=== PATIENT | female | born 1965 | race Caucasian/White ===

== ENCOUNTER 2018-09-07 13:33 | Outpatient (CLI) | payer MEDICARE, MEDICAID ==
--- NOTE | 2018-09-07 17:59 | MRI ---
MRI LUMBAR SPINE WITH AND WITHOUT CONTRAST: 09/07/2018 HISTORY: A 53-year-old female with low back pain and right-sided sciatica. COMPARISON: No prior MRIs of the lumbar spine. TECHNIQUE: Multiple sequences obtained in axial and sagittal planes, pre and post IV injection of gadolinium-bas ed contrast agent: 16 mL MultiHance. FINDINGS: There are five lumbar type vertebrae. Vertebral body heights and disk spaces are maintained. Alignm ent is normal. The conus medullaris terminates at L1-L2. There is no abnormal enhancement or mass, in the intradural, extradural, intraosseous, or perivertebral spaces. There is asymmetry of the caud a equina in the lower portion of the thecal sac, beginning at the lower L4 level, through the upper S 1 level. This is probably due to conjoined nerve root at L5-S1, and is less likely to represent deli worker quyen arachnoiditis. There is no central spinal canal stenosis or neural foraminal stenosis at any lev el. There is no nerve root impingement by disk herniation at any level. There is no epidural absces s. IMPRESSION: Essentially normal. JN R POS: OFF
== END 2018-09-07 13:34 | disposition home or self-care (01) ==
LOC: MRI 13:33
PROVIDERS: ATTEND Internal Medicine Infectious Disease
DX: M54.31 Sciatica, right side (principal)
CPT/HCPCS: 72158

== ENCOUNTER 2018-09-26 14:00 | Outpatient (CLI) | payer MEDICARE, MEDICAID ==
--- NOTE | 2018-09-26 14:30 | RAD ---
XR Hip Rt 2-3 View: 09/26/2018 12:00 AM CLINICAL INDICATION: Right hip pain COMPARISON: 07/25/2018 FINDINGS: Fracture:No fracture. Arthropathy:Moderate osteoarthritis is present. Metallic hardware of the acetabulum and right femoral head is present, without acute complication identified Incidental findings:None of significance. IMPRESSION: Postoperative right hip with moderate osteoarthritis.
== END 2018-09-26 14:01 | disposition home or self-care (01) ==
LOC: BICRAD 14:00
PROVIDERS: ATTEND Internal Medicine Infectious Disease
DX: M25.551 Pain in right hip (principal); M16.11 Unilateral primary osteoarthritis, right hip; Z98.890 Other specified postprocedural states

== ENCOUNTER 2019-10-01 16:20 | Inpatient (IN) | payer MEDICARE, MEDICAID, OTHER ==
[2019-10-01] MEDS ORDERED: Fentanyl 100 MCG/2 ML VIAL ONE ×2 (17:12→17:21)
--- NOTE | 2019-10-01 17:39 | RAD ---
XR Chest 1 View Portable HISTORY: Preop exam FINDINGS: The heart size is at upper limits of normal. The lungs are well expanded without focal area s of consolidation, pneumothorax or pleural effusions. IMPRESSION: No radiographic evidence of acute cardiopulmonary process.
--- NOTE | 2019-10-01 17:42 | RAD ---
XR Knee Rt 2 View HISTORY: Fall, right knee pain FINDINGS: No fracture or dislocation is identified.
--- NOTE | 2019-10-01 17:44 | RAD ---
XR Femur Rt 2 View STANDARD HISTORY: Fall, right lower extremity pain FINDINGS: There are postop changes of right hip arthroplasty. There is a fracture involving the proximal femur. There is bony involvement and mild displacement adjacent to the inferior aspect of the femoral stem of the metallic hardware.
--- NOTE | 2019-10-01 17:45 | RAD ---
XR Pelvis AP STANDARD HISTORY: Trauma, right lower extremity pain FINDINGS: A right total hip arthroplasty is present with a fracture of the right proximal femur
[2019-10-01 18:35] LABS: #Eosinphils 0.1 thou/uL (0.0-0.7); #Lymphocytes 1.1 thou/uL (1.20-3.40); #Monocytes 0.7 thou/uL (0.11-0.59); #Neutrophils 7.1 thou/uL (1.40-6.50); %Basophils 0.3 % (0.0-1.0); %Eosinophils 1.4 % (0.0-10.0); %Lymphocytes 11.7 % (21.0-51.0); %Monocytes 7.3 % (0.0-10.0); %Neutrophils 79.3 % (42.0-75.0); Hemoglobin 8.3 g/dL (12.0-16.0); Mean Corpuscular HGB CONC 34.8 g/dL (32.0-36.0); Mean Corpuscular Hemoglobin 33.2 pg (27.0-31.0); Mean Corpuscular Volume 95.4 fL (78.0-98.0); Mean Platelet Volume 7.5 fL (7.4-10.4); Platelet Count 210 thou/uL (130-400); RBC Distribution Width 11.3 % (11.5-14.5); Red Blood Cell (RBC) Count 2.49 mill/uL (4.20-5.40)
[2019-10-01 18:47] LABS: Bilirubin Negative (Negative); Blood, Urine Negative (Negative); Clarity Clear (Clear); Glucose, Urine (Dipstick) Normal (Negative); Ketone, Urine Negative (Negative); Leukocyte Negative Leu/uL (Negative); Nitrite Negative (Negative); Protein, Urine (Dipstick) Negative (Neg-Trace); Urobilinogen Normal mg/dL (Less than 2)
[2019-10-01 18:57] LABS: ALT (SGPT) 17 U/L (8-55); AST (SGOT) 25 U/L (5-34); Albumin 3.6 g/dL (3.5-5.0); Alkaline Phosphatase 118 U/L (40-110); Anion Gap 15 mmol/L (10-20); BUN (Urea Nitrogen) 26 mg/dL (9.8-20.1); Bilirubin, Total 0.5 mg/dL (0.2-1.2); Calc. Creatinine Clearance 0 mL/min (70-130); Calcium 9.9 mg/dL (7.8-10.44); Carbon Dioxide 16 mmol/L (22-29); Chloride 107 mmol/L (98-107); Estimated GFR-MDRD 43; Glucose 178 mg/dL (70-105); Potassium 3.4 mmol/L (3.5-5.1); Protein, Total 6.6 g/dL (6.0-8.3); Sodium 135 mmol/L (136-145)
[2019-10-01 19:01] LABS: SARS-CoV-2 NAA Rapid Test Not Detected (NotDetected)
[2019-10-01] MEDS ORDERED: Ondansetron PF 4 MG/2 ML Vial IVP PRN (21:11)
[2019-10-01] MEDS ORDERED: Ketorolac Tromethamine 30 MG/ML VIAL IVP PRN (21:11)
[2019-10-01] MEDS ORDERED: Fentanyl 100 MCG/2 ML VIAL SLOW IVP PRN (21:11)
[2019-10-01] MEDS ORDERED: traMADol HCl 50 MG TAB PO PRN ×2 (21:11)
[2019-10-01] MEDS ORDERED: Fleet Enema 133 ML BOT PR PRN (21:11)
[2019-10-01] MEDS ORDERED: Milk Of Magnesia 30 ML UDCUP PO PRN (21:11)
[2019-10-01] MEDS ORDERED: Insulin Regular 300 UNITS/3 ML VIAL SC PRN ×2 (21:11→22:09)
[2019-10-01] MEDS ORDERED: Dextrose 50% Abboject 50 ML SYRINGE SLOW IVP PRN (21:11)
[2019-10-01] MEDS ORDERED: Ondansetron ODT 4 MG TAB PO PRN (21:11)
[2019-10-01] MEDS ORDERED: Bisacodyl 10 MG SUPP PR PRN (21:11)
[2019-10-01] MEDS: Sodium Chloride 0.9% 1,000 ML IV SCH (21:41)
[2019-10-01] MEDS: Docusate 100 MG CAP PO SCH (21:48)
[2019-10-01] MEDS ORDERED: traZODone HCl 50 MG TAB PO SCH (22:00)
[2019-10-01] MEDS ORDERED: Lithium Carbonate ER 450 mg Tablet PO SCH (22:00)
[2019-10-01] MEDS ORDERED: Benztropine 1 MG TAB PO SCH (22:00)
[2019-10-01] MEDS ORDERED: Fenofibrate Nanocrystallized 145 MG TAB PO SCH (22:00)
[2019-10-01] MEDS ORDERED: hydrOXYzine 25 MG TAB PO SCH (22:15)
[2019-10-01] MEDS ORDERED: Gabapentin 300 MG CAP PO SCH (22:15)
[2019-10-01] MEDS ORDERED: Emtricitabine/Tenofovir 200-300 MG TAB PO SCH (22:30)
[2019-10-01] MEDS: HYDROcodone/Acetaminophen 10/325 mg Tablet PO PRN (22:58)
[2019-10-01 23:55] VITALS: BMI 34.3
--- NOTE | 2019-10-02 05:16 | HP ---
HISTORY OF PRESENT ILLNESS: Ms. Champagne is a 54-year-old female who presented status post right total hip arthroplasty for a right hip fracture dislocation, treated with ORIF with acetabulum in 1988. The patient's pain was improved after a total hip arthroplasty. The patient is HIV positive, disabled, has history of hepatitis C. The patient was in her trailer home. She was not using her assistive device for ambulation. She caught her foot on something on the ground and slipped and fell onto her right hip. She immediately had gross deformity, was brought by EMS for evaluation. PAST MEDICAL HISTORY: HIV, chronic pain, diabetes, coronary artery disease, hypertension, bipolar, hepatitis C treated. PAST SURGICAL HISTORY: Left tibia nail, right acetabular open reduction and internal fixation, and status post total hip arthroplasty on 09/26/2019. ALLERGIES: NO KNOWN DRUG ALLERGIES. MEDICATIONS: Include: 1. Amitriptyline. 2. Benztropine. 3. Vitamin D. 4. Atripla. 5. Fenofibrate. 6. Gabapentin. 7. Humulin. 8. Hydroxyzine. 9. Ibuprofen. 10. Lisinopril. 11. Hydrochlorothiazide. 12. [place]. 13. Trazodone. SOCIAL HISTORY: States she is a former smoker, alcohol on occasion. She is disabled. She lives in the [facility]. REVIEW OF SYSTEMS: Negative for 10-point review of systems. PHYSICAL EXAMINATION: VITAL SIGNS: The patient is afebrile. Her vital signs are stable. GENERAL: Alert and oriented female, in no acute distress. EXTREMITIES: Right lower extremity is shortened and externally rotated. Edema noted. Palpable pulses. She is able to feel L5 through S1 and wiggle her toes. DIAGNOSTIC DATA: X-rays show a periprosthetic fracture that splits around the patient's femoral component. Her H and H are 8 and 24. Pending chemistries as well as urine. IMPRESSION: Status post right total hip arthroplasty for right acetabulum fracture status post fall without assist device with a right proximal femur periprosthetic fracture. ASSESSMENT AND PLAN: The patient will need a revision of her femoral component. We will need to take out her femoral component, cerclage, and then place a long-stemmed component into position. She will then require a period of touchdown weightbearing. Requires opening up of the patient's incision. I discussed with her that given her HIV status and revision, increased her complications and risk, discussed the risk of being wheelchair bound, discussed the risk of needing her hip removed, discussed risk of chronic infection, fracture around this stem, damage to vital structures, loss of life or limb. I discussed risk of blood clots. The patient understands these risks and benefits. The patient will be posted for Wednesday. No implants are available for this revision until that time. She will be n.p.o. at midnight on Wednesday. Job ID: [id number]
[2019-10-02] MEDS: Benztropine 1 MG TAB PO SCH ×2 (08:13→20:04)
[2019-10-02] MEDS: Gabapentin 300 MG CAP PO SCH ×3 (08:13→20:06)
[2019-10-02] MEDS: hydrOXYzine 25 MG TAB PO SCH ×2 (08:14→20:08)
[2019-10-02] MEDS: Docusate 100 MG CAP PO SCH ×2 (08:14→20:09)
[2019-10-02] MEDS ORDERED: Dextrose 5% in Water 1,000 ML IV PRN (08:39)
[2019-10-02] MEDS ORDERED: hydrALAZINE 20 MG/ML VIAL SLOW IVP PRN (08:40)
--- NOTE | 2019-10-02 08:47 | PDOC.HHP ---
Hospitalist HPI - History of Present Illness Right hip pain History of Present Illness: The patient is a 54-year-old female with a past medical history significant for hypertension, hyperlipidemia, diabetes type 2, bipolar, HIV and a recent right total hip replacement on September [address] Merino that presents to the ER for the above complaint. Patient reports that she suffered a mechanical fall while moving house furniture into her trailer last night. She reports that she lost her balance and fell to the ground. She reports associated right hip and leg pain. She denies hitting her head, neck pain, any loss of consciousness or vomiting. She denies chest pain, shortness of breath, abdominal pain, diarrhea. She has no other complaints at this time. We are consulted by surgical services for medical management. ED Course: The patient presented with stable vital signs, normal blood pressure, normal pulse, normal respirations, normal oxygen saturation, afebrile. X-ray of the pelvis was significant for a right total hip arthroplasty is present with a fracture of the right proximal femur. X-ray of the right femur showed there are postop changes of the right hip arthroplasty. There is a fracture involving the proximal femur. There is bony involvement and mild displacement adjacent to the inferior aspect of the femoral stem of the metallic hardware. The patient was given fentanyl with improvement of her symptoms. Trauma services was consulted and agreed to admit the patient to the surgical unit, with Dr. oRdas to see the patient in the morning. Hospitalist ROS - Review of Systems All other systems reviewed; all pertinent +/- noted in HPI/Subj - Medication Medications: Active Medications Generic Name Dose Route Start Last Admin Trade Name Freq PRN Reason Stop Dose Admin Hydrocodone Bitart/Acetaminophen 1 tab 10/01/19 21:11 10/01/19 22:58 [place] 10/325 PO 1 tab Q4H PRN Administration Pain Benztropine Mesylate 1 mg 10/02/19 09:00 10/02/19 08:13 Cogentin PO 1 mg BID NIRMAL Administration Cholecalciferol 5,000 units 10/02/19 09:00 10/02/19 08:14 Vitamin D3 PO 5,000 units Mo@0900 NIRMAL Administration Docusate Sodium 100 mg 10/01/19 21:00 10/02/19 08:14 Colace PO 100 mg BID NIRMAL Administration Fentanyl 50 mcg 10/01/19 21:11 10/01/19 21:37 Sublimaze SLOW IVP 50 mcg Q20M PRN Administration Severe Pain (7-10) Gabapentin 900 mg 10/02/19 09:00 10/02/19 08:13 Neurontin PO 900 mg TID NIRMAL Administration Hydroxyzine HCl 50 mg 10/02/19 09:00 10/02/19 08:14 Atarax PO 50 mg BID NIRMAL Administration Sodium Chloride 1,000 mls @ 100 mls/hr 10/01/19 21:11 10/01/19 21:41 Normal Saline 0.9% IV 1,000 mls .Q10H NIRMAL Administration [place] Carbonate 600 mg 10/02/19 09:00 10/02/19 08:15 Lithobid Er PO 600 mg QAM NIRMAL Administration Ondansetron HCl 4 mg 10/01/19 21:11 10/01/19 23:28 Zofran IVP 4 mg Q6H PRN Administration Nausea/Vomiting Allergies: NKDA Hospitalist History - Past Medical History Source: patient, RN notes reviewed Other Medical History: Past medical history: 1. hypertension 2. Hyperlipidemia 3. Bipolar 4. Anxiety and depression Past surgical history: 1. Right hip replacement (September 26, 2019) by Dr. Aviles 2. Left wrist surgery 3. Left leg surgery Social history: Patient lives with her significant other at home in a trailer. she ambulates with a Roller walker. She quit smoking this year. Denies any illicit drug use. Reports alcohol intake socially. Family history: Noncontributory to this case. - Exam General Appearance: NAD, awake alert Eye: PERRL ENT: normocephalic atraumatic Neck: supple, no JVD Heart: RRR, no murmur, no gallops, no rubs, normal peripheral pulses Respiratory: CTAB, no wheezes, no rales, no ronchi, normal chest expansion, no tachypnea Gastrointestinal: soft, non-tender, normal bowel sounds, no guarding, no rigidity Extremities: no clubbing, no edema Extremities - other findings: right LE shortened and abduction Skin: no rashes Neurological: cranial nerve grossly intact, no focal deficits Neurological - other findings: resting tremor b hands, lip smacking Psychiatric: normal affect, A&O x 3 Hospitalist Results - Labs Result Diagrams: 10/01/19 18:25 10/01/19 18:25 Lab results: WBC 9.0 thou/uL (4.8-10.8) 10/01/19 18:25 Hgb 8.3 g/dL (12.0-16.0) L 10/01/19 18:25 Hct 23.7 % (36.0-47.0) L 10/01/19 18:25 MCV 95.4 fL (78.0-98.0) 10/01/19 18:25 Plt Count 210 thou/uL (130-400) 10/01/19 18:25 Neutrophils % 79.3 % (42.0-75.0) H 10/01/19 18:25 Sodium 135 mmol/L (136-145) L 10/01/19 18:25 Potassium 3.4 mmol/L (3.5-5.1) L 10/01/19 18:25 Chloride 107 mmol/L (98-107) 10/01/19 18:25 Carbon Dioxide 16 mmol/L (22-29) L 10/01/19 18:25 BUN 26 mg/dL (9.8-20.1) H 10/01/19 18:25 Creatinine 1.28 mg/dL (0.6-1.1) H 10/01/19 18:25 Glucose 178 mg/dL (70-105) H 10/01/19 18:25 Calcium 9.9 mg/dL (7.8-10.44) 10/01/19 18:25 Total Bilirubin 0.5 mg/dL (0.2-1.2) 10/01/19 18:25 AST 25 U/L (5-34) 10/01/19 18:25 ALT 17 U/L (8-55) 10/01/19 18:25 Alkaline Phosphatase 118 U/L (40-110) H 10/01/19 18:25 Troponin I Less than 0.010 ng/mL (< 0.028) 10/01/19 18:25 Serum Total Protein 6.6 g/dL (6.0-8.3) 10/01/19 18:25 Albumin 3.6 g/dL (3.5-5.0) 10/01/19 18:25 Urine Ketones Negative mg/dL (Negative) 10/01/19 18:26 Urine Blood Negative (Negative) 10/01/19 18:26 Urine Nitrite Negative (Negative) 10/01/19 18:26 Ur Leukocyte Esterase Negative [place]/uL (Negative) 10/01/19 18:26 - EKG Interpretation EKG: NSR RBB - Radiology Interpretation Chest x-ray Status: report reviewed by me Other Status: report reviewed by me Additional Comment: Xray pelvis, femur and knee Hospitalist H&P A/P - Problem (1) CRISTIANO (acute kidney injury) Code(s): N17.9 - ACUTE KIDNEY FAILURE, UNSPECIFIED Status: Acute Assessment and Plan: The patient is admitted with surgical floor, inpatient status. Expected length of stay greater than 2 midnights. Consulted for medical management. Patient presents with a creatinine of 1.28, baseline appears to be 0.79. Continue IV fluids. Hold lisinopril, HCTZ. Hold NSAIDs. Recheck level in a.m. (2) HTN (hypertension) Code(s): I10 - ESSENTIAL (PRIMARY) HYPERTENSION Status: Chronic Assessment and Plan: Upon assessment of the patient has normal blood pressure, normal pulse. Will hold lisinopril/hydrochlorothiazide due to CRISTIANO. Will add hydralazine as needed. (3) DMII (diabetes mellitus, type 2) Status: Chronic Assessment and Plan: Patient reports taking Humulin, regular, 20 units in the morning. Will hold for now. Will start moderate sliding scale. Will perform Accu-Cheks AC at bedtime. (4) HLD (hyperlipidemia) Code(s): E78.5 - HYPERLIPIDEMIA, UNSPECIFIED Status: Chronic Assessment and Plan: Agree with continuation of home dose of fenofibrate. (5) Bipolar disorder Code(s): F31.9 - BIPOLAR DISORDER, UNSPECIFIED Status: Chronic Assessment and Plan: Agree with continuation of home dose of lithium. Will check lithium level secondary to CRISTIANO. (6) Anxiety and depression Code(s): F41.9 - ANXIETY DISORDER, UNSPECIFIED; F32.9 - MAJOR DEPRESSIVE DISORDER, SINGLE EPISODE, UNSPECIFIED Status: Chronic (7) HIV (human immunodeficiency virus infection) Code(s): B20 - HUMAN IMMUNODEFICIENCY VIRUS [HIV] DISEASE Status: Acute Assessment and Plan: Agree with restarting home dose of Atripla. - Plan Plan: Heparin for DVT prophylaxis. Protonix for GI prophylaxis. Patient is a full code. Discussed case with Dr. Black.
[2019-10-02] MEDS ORDERED: Cholecalciferol 1,000 UNITS (25 MCG) TAB PO SCH (09:00)
[2019-10-02] MEDS ORDERED: Lisinopril/Hydrochlorothiazide 20/25 mg Tablet PO SCH (09:00)
[2019-10-02] MEDS: Sodium Chloride 0.9% 1,000 ML IV SCH ×2 (10:44→18:05)
[2019-10-02] MEDS: HYDROcodone/Acetaminophen 10/325 mg Tablet PO PRN ×2 (12:23→22:56)
[2019-10-02] MEDS: HumaLOG 300 UNITS/3 ML VIAL SC PRN ×3 (12:24→20:19)
[2019-10-02] MEDS: Emtricitabine/Tenofovir 200-300 MG TAB PO SCH (20:04)
[2019-10-02] MEDS: Lithium Carbonate ER 450 mg Tablet PO SCH (20:04)
[2019-10-02] MEDS: Fenofibrate Nanocrystallized 145 MG TAB PO SCH (20:05)
[2019-10-02] MEDS: traZODone HCl 50 MG TAB PO SCH (20:07)
[2019-10-02] MEDS: Heparin 5,000 UNITS/ML VIAL SC SCH (20:09)
[2019-10-02] MEDS ORDERED: Efavirenz/Emtricitab/Tenofovir [Atripla] PO SCH (21:00)
[2019-10-03] MEDS: Sodium Chloride 0.9% 1,000 ML IV SCH ×3 (03:30→23:44)
[2019-10-03 05:31] LABS: #Eosinphils 0.1 thou/uL (0.0-0.7); #Lymphocytes 0.9 thou/uL (1.20-3.40); #Monocytes 0.6 thou/uL (0.11-0.59); #Neutrophils 4.4 thou/uL (1.40-6.50); %Basophils 0.1 % (0.0-1.0); %Eosinophils 1.3 % (0.0-10.0); %Lymphocytes 15.7 % (21.0-51.0); %Monocytes 9.4 % (0.0-10.0); %Neutrophils 73.6 % (42.0-75.0); Mean Corpuscular HGB CONC 32.4 g/dL (32.0-36.0); Mean Corpuscular Volume 95.8 fL (78.0-98.0); Mean Platelet Volume 7.5 fL (7.4-10.4); Platelet Count 193 thou/uL (130-400); RBC Distribution Width 11.4 % (11.5-14.5); Red Blood Cell (RBC) Count 2.58 mill/uL (4.20-5.40); White Blood Cell (WBC) Count 5.9 thou/uL (4.8-10.8)
[2019-10-03] MEDS: HumaLOG 300 UNITS/3 ML VIAL SC PRN ×2 (05:31→20:38)
[2019-10-03 05:41] LABS: Anion Gap 11 mmol/L (10-20); BUN (Urea Nitrogen) 10 mg/dL (9.8-20.1); Calc. Creatinine Clearance 120 mL/min (70-130); Calcium 10.3 mg/dL (7.8-10.44); Carbon Dioxide 19 mmol/L (22-29); Chloride 110 mmol/L (98-107); Estimated GFR-MDRD 79; Glucose 187 mg/dL (70-105); Potassium 3.5 mmol/L (3.5-5.1); Sodium 136 mmol/L (136-145)
[2019-10-03] MEDS ORDERED: Fentanyl 100 MCG/2 ML VIAL ONE ×3 (09:17→14:52)
[2019-10-03] MEDS ORDERED: Midazolam HCl 2 mg/2 ml Vial ONE (09:17)
[2019-10-03] MEDS ORDERED: Dexamethasone 4 mg/ml Vial ONE (09:28)
[2019-10-03] MEDS ORDERED: Ondansetron PF 4 MG/2 ML Vial ONE (09:51)
[2019-10-03] MEDS ORDERED: EPHEDRINE 25 MG/5 ML SYRINGE ONE (09:51)
[2019-10-03] MEDS ORDERED: Dexamethasone 20 MG/5 ML VIAL ONE ×2 (09:51)
[2019-10-03] MEDS ORDERED: Glycopyrrolate 0.2 MG/ML 5 ML SYRINGE ONE (09:51)
[2019-10-03] MEDS ORDERED: PROPOFOL 200 MG/20 ML VIAL ONE (09:51)
[2019-10-03] MEDS ORDERED: Rocuronium Bromide 10 MG/ML (10ML VIAL) ONE (09:51)
[2019-10-03] MEDS ORDERED: Bupivacaine HCl 0.5%/Epinephrine 1:200,000/PF 30 ml Vial ONE (09:51)
[2019-10-03] MEDS ORDERED: Lidocaine 1% PF 5 ML VIAL ONE (09:51)
[2019-10-03] MEDS: Benztropine 1 MG TAB PO SCH ×2 (10:09→20:27)
[2019-10-03] MEDS: Heparin 5,000 UNITS/ML VIAL SC SCH ×2 (10:09→20:34)
[2019-10-03] MEDS: hydrOXYzine 25 MG TAB PO SCH ×2 (10:09→20:33)
[2019-10-03] MEDS: Docusate 100 MG CAP PO SCH ×2 (10:09→20:33)
[2019-10-03] MEDS: Gabapentin 300 MG CAP PO SCH ×3 (10:09→20:31)
[2019-10-03] MEDS ORDERED: Vancomycin 1.5 GRAM/300 ML BAG ONE (10:42)
[2019-10-03] MEDS ORDERED: Phenylephrine 10 MG/ML VIAL ONE (11:17)
[2019-10-03] MEDS ORDERED: PACU-Morphine 4MG/ML VIAL SLOW IVP PRN (13:28)
[2019-10-03] MEDS ORDERED: HYDROmorphone 2 MG/ML VIAL SLOW IVP PRN (13:28)
[2019-10-03] MEDS ORDERED: Promethazine HCl 25 MG/ML VIAL SLOW IVP PRN (13:28)
[2019-10-03] MEDS ORDERED: Promethazine HCl 25 MG/ML VIAL IM PRN (13:28)
[2019-10-03] MEDS ORDERED: Ondansetron HCl/PF 4 MG/2 ML Vial IVP PRN (13:28)
[2019-10-03] MEDS ORDERED: SUGAMMADEX SODIUM 200 MG/2 ML VIAL ONE (13:53)
[2019-10-03] MEDS ORDERED: HYDROcodone/Acetaminophen 5/325 mg Tablet PO PRN ×2 (14:57)
[2019-10-03] MEDS ORDERED: Fentanyl 100 MCG/2 ML VIAL SLOW IVP PRN (14:58)
[2019-10-03] MEDS ORDERED: fentaNYL 50 mcg/hour Patch TD SCH (15:00)
--- NOTE | 2019-10-03 18:19 | RAD ---
EXAM: 2 views of the right femur HISTORY: Right hip arthroplasty revision for fracture COMPARISON: 10/01/2019 FINDINGS: The patient is status post revision right hip arthroplasty with cerclage wire placement. Th e previously seen fracture in the proximal femur is better aligned. Air in the soft tissues is from recent surgery. IMPRESSION: Status post revision right hip arthroplasty
[2019-10-03] MEDS ORDERED: CEFAZOLIN 2 GM in Premix Bag 1 BAG IVPB SCH (20:00)
[2019-10-03] MEDS: Fenofibrate Nanocrystallized 145 MG TAB PO SCH (20:30)
[2019-10-03] MEDS: Emtricitabine/Tenofovir 200-300 MG TAB PO SCH (20:30)
[2019-10-03] MEDS: Lithium Carbonate ER 450 mg Tablet PO SCH (20:30)
[2019-10-03] MEDS: traZODone HCl 50 MG TAB PO SCH (20:32)
--- NOTE | 2019-10-03 21:25 | OP ---
DATE OF PROCEDURE: 10/03/2019 PREOPERATIVE DIAGNOSIS: Right hip acute periprosthetic hip fracture during acute postoperative phase of primary hip. POSTOPERATIVE DIAGNOSIS: Right hip acute periprosthetic hip fracture during acute postoperative phase of primary hip. OPERATIVE PROCEDURE: Open reduction with explantation of previous subacute hip stem, reduction of fracture, and revision arthroplasty of right hip. PROPERTY WORKER: Zen Harden PA-C ANESTHESIA: General via endotracheal tube augmented with indwelling epidural. COMPONENTS USED: [employer] Mandaen 155 mm length x 16 mm diameter modular hip stem with a 23-mm proximal body. A 32-mm ceramic +4 neck length of the femoral head. ESTIMATED BLOOD LOSS: 800. FINDINGS: Periprosthetic proximal femur fracture extending from inferior aspect about 2 fingerbreadths below the original hip stem in the metaphyseal junction up to and including the calcar and greater trochanter. INPUT: 600 crystalloid and 2 units colloid in the form of packed red blood cells. OUTPUT: 300 mL of clear yellow urine. DRAINS: None. SPECIMENS: None. COMPLICATION: None. COUNTS: Correct. INDICATION FOR SURGERY: Pham is a 54-year-old white female who just recently had a right total hip arthroplasty last week, went home, was discharged in stable condition and ultimately fell at home, not adhering to fall precautions. She sustained a right periprosthetic fracture, was admitted yesterday and has elected to proceed with revision arthroplasty as definitive measures to this problem. DESCRIPTION OF PROCEDURE: After informed consent was obtained in preoperative holding area, the patient was taken to the operative suite, where she received a preoperative antibiotics. General anesthesia was then induced. Airway was placed and secured. Once adequate anesthesia was obtained, the patient was positioned appropriately in the left lateral decubitus position allowing for access to the right hip, then prepped and draped in usual sterile fashion. Her old incision was used and we also extended this by about 6 cm inferiorly. The posterior approach was her primary surgical approach that we adhered to this. The retaining sutures and Quill stitches were also all removed from the incision. An unorganized hematoma was encountered and evacuated and pulse lavage was used. IT band was encountered and incised. The short external rotators were then encountered and cut and exposure was allowed. We identified the fracture. We removed the femoral head and then placed the stem extractor on and back slipped out the stem. We checked the acetabular cup and it was found to be firm. We copiously irrigated. The assistant cook then provided exposure while the surgeon was able to extend the incision down and collectively we placed 2 [place] bone reducing forceps to obtain preliminary reduction. We then placed 3 [place] cables both proximally and 2 distally to maintain fracture reduction. Attention was then turned to sequential reaming. We reamed up to the appropriate size and broaching was not necessary as this was a diaphyseal fit system and we then malleted squarely and placed the permanent hip stem. We trialed with rotation and length of the proximal body and found the appropriate size and distance with good shuck and stability. The proximal body was then over-reamed and the permanent proximal body was then malleted and torqued into appropriate specks. We chose a +4 neck length on the ceramic femoral head. This was malleted onto the trunnion. Reduction maneuver was performed. We had good reduction and stability with flexion, extension, internal and external rotation. The entire wound was copiously irrigated with normal saline. The primary closure was accomplished with a running #2 Quill stitch in the vastus lateralis and also in the iliotibial band. The subcutaneous layer was closed with a running 0 Quill stitch and the 2-0 Prolene stitch was used in a running horizontal mattress to reapproximate the skin. Sterile dressing was applied. Procedure was terminated without any complication. The airway was removed in the operative suite. The patient was taken to recovery room in stable condition. Job ID: [id number]
[2019-10-03] MEDS ORDERED: Vancomycin 1.5 GRAM/300 ML BAG 1.5 GM in Premix Bag 1 BAG IVPB SCH (23:00)
[2019-10-04] MEDS ORDERED: Lorazepam 2 MG/ML VIAL SLOW IVP SCH (03:30)
[2019-10-04] MEDS: HumaLOG 300 UNITS/3 ML VIAL SC PRN ×4 (05:16→21:51)
[2019-10-04 05:23] LABS: Band 2 % (5-11); Hemoglobin 8.7 g/dL (12.0-16.0); Hypochromia SLIGHT = 6-15 cells (100X) (0-5/hpf); Lymphocytes 10 % (21-51); MDiff Complete? YES; Mean Corpuscular HGB CONC 33.7 g/dL (32.0-36.0); Mean Corpuscular Hemoglobin 32.6 pg (27.0-31.0); Mean Corpuscular Volume 96.6 fL (78.0-98.0); Mean Platelet Volume 7.7 fL (7.4-10.4); Monocytes 10 % (0-10); Neutrophil 78 % (42-75); Platelet Count 216 thou/uL (130-400); Platelet Morphology Comment Appears Adequate; Red Blood Cell (RBC) Count 2.68 mill/uL (4.20-5.40); White Blood Cell (WBC) Count 9.4 thou/uL (4.8-10.8)
[2019-10-04] MEDS ORDERED: CEFAZOLIN 2 GM in Premix Bag 1 BAG IVPB SCH (06:00)
[2019-10-04] MEDS: Gabapentin 300 MG CAP PO SCH ×3 (09:24→21:49)
[2019-10-04] MEDS: Docusate 100 MG CAP PO SCH ×2 (09:24→21:49)
[2019-10-04] MEDS: hydrOXYzine 25 MG TAB PO SCH ×2 (09:25→21:49)
[2019-10-04] MEDS: Heparin 5,000 UNITS/ML VIAL SC SCH ×2 (09:25→21:51)
[2019-10-04] MEDS: Benztropine 1 MG TAB PO SCH ×2 (09:26→21:49)
--- NOTE | 2019-10-04 13:47 | PDOC.HOSPP ---
- Subjective Encounter Date: 10/04/19 Subjective: Patient was agitated overnight and was given Ativan. She is currently sleeping. - Objective Vital Signs & Weight: Vital Signs (12 hours) Temp Pulse Resp BP Pulse Ox 10/04/19 11:53 99.1 F 103 H 18 139/78 96 10/04/19 08:16 98.9 F 97 20 110/71 96 10/04/19 03:25 99.6 F 102 H 18 116/67 96 Weight Weight 199 lb 15.348 oz I&O: 10/03/19 10/04/19 10/05/19 06:59 06:59 06:59 Intake Total 5350 960 Output Total 8139 1375 Balance -5450 -415 Result Diagrams: 10/04/19 04:39 10/03/19 04:55 Additional Labs: Accuchecks 10/04/19 10/04/19 10/03/19 11:10 05:21 20:14 POC Glucose 258 H 236 H 241 H Hospitalist ROS - Medication Medications: Active Medications Generic Name Dose Route Start Last Admin Trade Name Aleksey PRN Reason Stop Dose Admin Amitriptyline HCl 150 mg 10/02/19 21:00 10/03/19 20:36 Elavil PO 150 mg HS NIRMAL Administration Benztropine Mesylate 1 mg 10/02/19 09:00 10/04/19 09:26 Cogentin PO 1 mg BID NIRMAL Administration Cholecalciferol 5,000 units 10/02/19 09:00 10/02/19 08:14 Vitamin D3 PO 5,000 units Mo@0900 NIRMAL Administration Docusate Sodium 100 mg 10/01/19 21:00 10/04/19 09:24 Colace PO 100 mg BID NIRMAL Administration Efavirenz 600 mg 10/02/19 21:00 10/03/19 20:26 Sustiva PO 600 mg 2100 NIRMAL Administration Emtricitabine/Tenofovir 1 tab 10/02/19 21:00 10/03/19 20:30 Truvada PO 1 tab HS NIRMAL Administration Fenofibrate 145 mg 10/02/19 21:00 10/03/19 20:30 Tricor PO 145 mg HS NIRMAL Administration Fentanyl 50 mcg 10/03/19 15:00 10/03/19 16:57 Duragesic TD 50 mcg Q3D NIRMAL Administration Gabapentin 900 mg 10/02/19 09:00 10/04/19 09:24 Neurontin PO 900 mg TID NIRMAL Administration Heparin Sodium (Porcine) 5,000 units 10/02/19 21:00 10/04/19 09:25 Heparin SC 5,000 units BID NIRMAL Administration Hydroxyzine HCl 50 mg 10/02/19 09:00 10/04/19 09:25 Atarax PO 50 mg BID NIRMAL Administration Insulin Human Lispro 0 units 10/02/19 08:39 10/04/19 05:16 Humalog SC 4 unit .MODERATE SLIDING SC PRN Administration Moderate [place] Scale Insulin Human Lispro 0 units 10/02/19 08:39 10/03/19 20:38 Humalog SC 2 unit .BEDTIME SLIDING SC PRN Administration Bedtime Correctional Scale [place] Carbonate 900 mg 10/02/19 21:00 10/03/19 20:30 Eskalith Er PO 900 mg HS NIRMAL Administration [place] Carbonate 600 mg 10/02/19 09:00 10/04/19 09:25 Lithobid Er PO 600 mg QAM NIRMAL Administration Pantoprazole Sodium 40 mg 10/03/19 09:00 10/04/19 09:25 Protonix PO 40 mg DAILY NIRMAL Administration Trazodone HCl 200 mg 10/02/19 21:00 10/03/19 20:32 Desyrel PO 200 mg HS NIRMAL Administration - Exam ENT: normocephalic atraumatic Neck: supple, no JVD Respiratory: normal chest expansion, no tachypnea Gastrointestinal: soft Extremities: no cyanosis, no clubbing, no edema Neurological: no focal deficits Hosp A/P (1) Delirium Code(s): R41.0 - DISORIENTATION, UNSPECIFIED Status: Acute (2) HIV (human immunodeficiency virus infection) Code(s): B20 - HUMAN IMMUNODEFICIENCY VIRUS [HIV] DISEASE Status: Acute (3) Anxiety and depression Code(s): F41.9 - ANXIETY DISORDER, UNSPECIFIED; F32.9 - MAJOR DEPRESSIVE DISORDER, SINGLE EPISODE, UNSPECIFIED Status: Chronic (4) Bipolar disorder Code(s): F31.9 - BIPOLAR DISORDER, UNSPECIFIED Status: Chronic (5) DMII (diabetes mellitus, type 2) Status: Chronic (6) HLD (hyperlipidemia) Code(s): E78.5 - HYPERLIPIDEMIA, UNSPECIFIED Status: Chronic (7) HTN (hypertension) Code(s): I10 - ESSENTIAL (PRIMARY) HYPERTENSION Status: Chronic - Plan The patient is in no delirious state this is likely multifactorial. She has been drinking alcohol consistently for a while. She was also reportedly on excessive pain medications at home per family members. Alcohol or opiate withdrawal are in the differential. I will initiate AST protocol. Ativan 1 mg every 4-6 hours as needed for agitation and ASE score greater than 8 can be used. Start IV banana bag. Vital signs are stable.
[2019-10-04] MEDS ORDERED: Multivitamins, Adult 10 ML, Folic Acid 1 MG, Thiamine HCl 100 MG in Dextrose 5 %-0.45 %... IV SCH (14:00)
[2019-10-04] MEDS: Sodium Chloride 0.9% 1,000 ML IV SCH (16:04)
[2019-10-04] MEDS: Acetaminophen 325 MG TAB PO PRN (19:19)
[2019-10-04] MEDS: traZODone HCl 50 MG TAB PO SCH (21:49)
[2019-10-04] MEDS: Fenofibrate Nanocrystallized 145 MG TAB PO SCH (21:50)
[2019-10-04] MEDS: Lithium Carbonate ER 450 mg Tablet PO SCH (21:50)
[2019-10-04] MEDS: Emtricitabine/Tenofovir 200-300 MG TAB PO SCH (21:50)
[2019-10-05 05:27] LABS: #Eosinphils 0.2 thou/uL (0.0-0.7); #Lymphocytes 1.2 thou/uL (1.20-3.40); #Monocytes 0.8 thou/uL (0.11-0.59); #Neutrophils 5.2 thou/uL (1.40-6.50); %Basophils 0.2 % (0.0-1.0); %Eosinophils 3.3 % (0.0-10.0); %Lymphocytes 15.6 % (21.0-51.0); %Monocytes 11.1 % (0.0-10.0); %Neutrophils 69.8 % (42.0-75.0); Hemoglobin 8.3 g/dL (12.0-16.0); Mean Corpuscular HGB CONC 34.1 g/dL (32.0-36.0); Mean Corpuscular Hemoglobin 32.8 pg (27.0-31.0); Mean Corpuscular Volume 96.3 fL (78.0-98.0); Mean Platelet Volume 7.6 fL (7.4-10.4); Platelet Count 211 thou/uL (130-400); RBC Distribution Width 11.8 % (11.5-14.5); Red Blood Cell (RBC) Count 2.53 mill/uL (4.20-5.40); White Blood Cell (WBC) Count 7.4 thou/uL (4.8-10.8)
[2019-10-05] MEDS ORDERED: Ibuprofen 600 MG TAB PO PRN (06:00)
[2019-10-05] MEDS: HumaLOG 300 UNITS/3 ML VIAL SC PRN (06:02)
[2019-10-05] MEDS: hydrOXYzine 25 MG TAB PO SCH (09:50)
[2019-10-05] MEDS: Benztropine 1 MG TAB PO SCH (09:50)
[2019-10-05] MEDS: Gabapentin 300 MG CAP PO SCH (09:50)
[2019-10-05] MEDS: Docusate 100 MG CAP PO SCH (09:50)
[2019-10-05] MEDS: Heparin 5,000 UNITS/ML VIAL SC SCH (09:51)
[2019-10-05] MEDS: Acetaminophen 325 MG TAB PO PRN (09:55)
[2019-10-05 15:32] VITALS: BP 115/76; TEMP 98
--- NOTE | 2019-10-06 13:59 | DIS ---
DATE OF ADMISSION: 10/01/2019 DATE OF DISCHARGE: 10/05/2019 This is Casa Aguila PA-C dictating a report for Marco Antonio Merino MD. DATE OF SURGICAL PROCEDURE: 10/03/2019. PREOPERATIVE DIAGNOSIS: Right hip acute periprosthetic hip fracture during acute postoperative phase primary hip. POSTOPERATIVE DIAGNOSIS: Right hip acute periprosthetic hip fracture during acute postoperative phase primary hip. PROCEDURES PERFORMED: The patient underwent an open reduction with explantation of previous subacute hip stem reduction of fracture, revision arthroplasty of right hip. HOSPITAL STAY: The patient did fairly well, was admitted to [address], where they worked with physical therapy, occupational therapy, and staff and progressed fairly well. The patient had no other hospital complications, but did need further rehab therapies, so was discharged to a alf facility. Followup would be in 2 to 4 weeks or sooner if there are problems and/or concerns. DISCHARGE MEDICATIONS: Given with usage instructions. Job ID: [id number]
--- NOTE | 2019-10-07 15:26 | EKG ---
Test Reason : Blood Pressure : / mmHG Vent. Rate : 093 BPM Atrial Rate : 093 BPM P-R Int : 178 ms QRS Dur : 124 ms QT Int : 394 ms P-R-T Axes : 052 033 034 degrees QTc Int : 489 ms Normal sinus rhythm Right bundle branch block Inferior infarct , age undetermined Cannot rule out Anterior infarct , age undetermined Abnormal ECG Confirmed by YUE ESQUIVEL, GABINO ([id number]), publishing editor DICKSON DAY ([id number]) on 10/07/2019 3:25:59 PM Referred By: Confirmed By:GABINO TURNER MD
--- NOTE | 2019-10-08 06:25 | PQF ---
CLINICAL DOCUMENTATION CLARIFICATION FORM: Dear : Jericho Black Date / Time: 10/08/2019 Please exercise your independent, professional judgment in responding to the clarification form. Clinical indicators are provided on the bottom of this form for your review Please check appropriate box(es): [ > ] Encephalopathy: Type: [ > ] Acute [ ] Subacute [ ] Chronic Etiology: [ ] Toxic [ > ] Metabolic [ ] Unspecified [ ] Other (please specify) [ ] Transient Alteration of Awareness [ ] Other diagnosis [ ] Unable to determine In addition, please specify: Present on Admission (POA): [ ?] Yes [ ] No [ ] Unable to determine To be completed by CDI/Coding staff for physician review: Present Clinical Indicators - Signs / Symptoms / Labs Results and Location in Medical Record [ x ] The patient is in delirious state, this is likely multifactorial. She has been drinking alcohol consistently for a while, reportedly on excessive pain medications at home per family member Progress note 10/03 by Jericho Black MD [ x ] Patient was agitated overnight and was given Ativan. Alcohol or opiate withdrawal are in the differential. Ativan 1 mg every 4-6 hours as needed for agitation and ASE score greater than 8 can be used. Start IV banana bag Progress note 10/03 by Jericho Black MD Present Risk Factors Results and Location in Medical Record [ x ] Consistently drinking alcohol, excessive pain medications usage at home Progress note 10/03 by Jericho Black MD [ x ] Revision arthroplasty of right hip 10/02 Operative notes 10/02 by Marco Antonio Merino MD Present Treatments Results and Location in Medical Record [ x ] Multivitamins, Folic acid and thiamine 10/03 Medications [ x ] Ativan 1 mg given Progress note 10/03 by Jericho Black MD CDS/Sheet Rock Finisher Signature: [email or web address] Phone #: Date/Time: 10/08/2019 This is a permanent part of the Medical Record [facility]
== END 2019-10-05 15:45 | DRG 466 ==
LOC: ERS 16:20 → SJJU 21:09
PROVIDERS: ADMIT Orthopaedic Surgery; ATTEND Orthopaedic Surgery
PROC: 0SRR03Z Replacement of Right Hip Joint, Femoral Surface with Ceramic Synthetic Substitute, Open Approach (ICD-10-PCS; principal; 2019-10-03)
PROC: 0SPR0JZ Removal of Synthetic Substitute from Right Hip Joint, Femoral Surface, Open Approach (ICD-10-PCS; 2019-10-03)
PROC: 0QS604Z Reposition Right Upper Femur with Internal Fixation Device, Open Approach (ICD-10-PCS; 2019-10-03)
PROC: 30233N1 Transfusion of Nonautologous Red Blood Cells into Peripheral Vein, Percutaneous Approach (ICD-10-PCS; 2019-10-03)
PROC: HZ2ZZZZ Detoxification Services for Substance Abuse Treatment (ICD-10-PCS; 2019-10-04)
DX: M97.01XA Periprosthetic fracture around internal prosthetic right hip joint, initial encounter (principal); S72.001A Fracture of unspecified part of neck of right femur, initial encounter for closed fracture; G93.41 Metabolic encephalopathy; N17.9 Acute kidney failure, unspecified; B20 Human immunodeficiency virus [HIV] disease; Z20.828 Contact with and (suspected) exposure to other viral communicable diseases; G89.29 Other chronic pain; E11.9 Type 2 diabetes mellitus without complications; I25.10 Atherosclerotic heart disease of native coronary artery without angina pectoris; F41.9 Anxiety disorder, unspecified; I10 Essential (primary) hypertension; E78.5 Hyperlipidemia, unspecified; F31.9 Bipolar disorder, unspecified; Z96.641 Presence of right artificial hip joint; W18.30XA Fall on same level, unspecified, initial encounter; R41.0 Disorientation, unspecified; Z79.4 Long term (current) use of insulin; Z87.891 Personal history of nicotine dependence; Y83.1 Surgical operation with implant of artificial internal device as the cause of abnormal reaction of the patient, or of later complication, without mention of misadventure at the time of the procedure
CPT/HCPCS: 36415; 36416; 36430; 71045; 72170; 80048; 80053; 80178; 81003; 84484; 85025; 86850; 86900; 86901; 93005; 96374; C1776; G0390; J0670; J0690; J1100; J1644; J1815; J2060; J2250; J2370; J2405; J2704; J3010; J3370; J3411; J7042; P9016; U0002

== ENCOUNTER 2019-10-08 06:17 | Inpatient (IN) | payer MEDICARE, MEDICAID ==
[2019-10-08] MEDS ORDERED: cefTRIAXone\\ROCEPHIN 1 GM VIAL ONE (06:51)
[2019-10-08] MEDS ORDERED: Vancomycin 1 GM/200 ML BAG ONE (06:52)
[2019-10-08 07:28] LABS: #Eosinphils 0.2 thou/uL (0.0-0.7); #Monocytes 0.6 thou/uL (0.11-0.59); #Neutrophils 4.6 thou/uL (1.40-6.50); %Basophils 0.7 % (0.0-1.0); %Eosinophils 3.9 % (0.0-10.0); %Lymphocytes 15.9 % (21.0-51.0); %Monocytes 8.8 % (0.0-10.0); %Neutrophils 70.8 % (42.0-75.0); Hemoglobin 8.9 g/dL (12.0-16.0); Mean Corpuscular HGB CONC 33.8 g/dL (32.0-36.0); Mean Corpuscular Hemoglobin 32.6 pg (27.0-31.0); Mean Corpuscular Volume 96.4 fL (78.0-98.0); Mean Platelet Volume 7.7 fL (7.4-10.4); Platelet Count 270 thou/uL (130-400); RBC Distribution Width 12.2 % (11.5-14.5); Red Blood Cell (RBC) Count 2.71 mill/uL (4.20-5.40); White Blood Cell (WBC) Count 6.4 thou/uL (4.8-10.8)
[2019-10-08 07:48] LABS: ALT (SGPT) 8 U/L (8-55); AST (SGOT) 14 U/L (5-34); Albumin 3.1 g/dL (3.5-5.0); Alkaline Phosphatase 179 U/L (40-110); Anion Gap 9 mmol/L (10-20); BUN (Urea Nitrogen) 9 mg/dL (9.8-20.1); Bilirubin, Total 0.5 mg/dL (0.2-1.2); Calc. Creatinine Clearance 0 mL/min (70-130); Calcium 10.4 mg/dL (7.8-10.44); Carbon Dioxide 19 mmol/L (22-29); Chloride 116 mmol/L (98-107); Estimated GFR-MDRD 76; Globulin 3.5 g/dL (2.4-3.5); Glucose 167 mg/dL (70-105); Protein, Total 6.6 g/dL (6.0-8.3); Sodium 141 mmol/L (136-145)
--- NOTE | 2019-10-08 08:05 | CT ---
Exam: Pelvic CT without contrast HISTORY: Evaluate wound infection. COMPARISON: None. FINDINGS: Visualized intra-abdominal and pelvic mesentery is grossly unremarkable. No mass, lymphadenopathy, fr ee air, or free fluid. Visualized uterus and adnexal structures do not have an abnormal appearance. Kelley catheter decompres ses the urinary bladder. Small amount of contrast is noted within the urinary bladder. Visualized alimentary canal demonstrates scattered fecal material in a nondistended, nondilated colon . The visualized lower spine, sacrum and bony pelvis are intact. Left hip and proximal femur do not dem onstrate any abnormality. There is a right hip arthroplasty. No evidence of a perihardware lucency. There is edema and nonloculated fluid along the right gluteal subcutaneous fat. There is edema involv ing the right gluteus babita muscle. Fluid tracks along the subcutaneous fat and appears to connect with the dermis. There is induration and thickening of the dermis at the level of the right b uttocks. There is a small focus of air attenuation in the proximal right lower extremity (axial image 71, seri es 3; coronal image 83, series 400). Additional smaller foci of air attenuation are also noted. There does appear to be edema involving the right quadriceps muscle. Findings may be postoperative. H owever, myositis cannot be excluded. IMPRESSION: 1. Internal fixation of a right hip and proximal femur fracture. There is also a right greater trocha nter, intertrochanteric and subtrochanteric fracture. This fracture extends into the right mid femoral diaphysis. 2. Nonloculated fluid involving the right gluteal subcutaneous fat and musculature. This fluid appea rs to track along the subcutaneous fat and may involve a small focus along the dermis. 3. Small foci of air along the right lower extremity with edematous change of the musculature. Findin gs may be postoperative. Infection cannot be excluded. Transcribed Date/Time: 10/08/2019 10:41 AM
[2019-10-08] MEDS ORDERED: Iopamidol-370 76% 500 ML 1 ML ONE (09:23)
[2019-10-08] MEDS ORDERED: Dextrose 5% in Water 1,000 ML IV PRN (10:13)
[2019-10-08] MEDS ORDERED: Dextrose 50% Abboject 50 ML SYRINGE SLOW IVP PRN (10:13)
[2019-10-08] MEDS ORDERED: Bisacodyl 10 MG SUPP PR PRN (10:13)
[2019-10-08] MEDS ORDERED: Guaifenesin DM 100-10/5 ML UDCUP PO PRN (10:13)
[2019-10-08] MEDS ORDERED: Calcium Carbonate 500 MG ChewTAB PO PRN (10:13)
[2019-10-08] MEDS ORDERED: Ondansetron PF 4 MG/2 ML Vial IVP PRN (10:13)
--- NOTE | 2019-10-08 11:02 | HP ---
REASON FOR ADMISSION: Altered mental state. HISTORY OF PRESENTING ILLNESS: The patient initially was sent from her [facility]dc to [facility] Emergency Room for apparent bleeding in her surgical site on the right hip. She was evaluated with imaging studies there and clinically as well. There was no active bleeding. During the course of her stay there, the patient got more agitated and confused. A decision was made to transfer her here. The patient apparently took lot of [place] tablets and has a history of opioid abuse in the past. The patient initially had right total hip arthroplasty, status post acetabular fracture and ORIF. She also had removal of hardware, all of this done on 09/26/[address] Merino. The patient was discharged home on the and was readmitted on the 01 of October after she had a mechanical fall while moving her house furniture into her trailer. She subsequently had open reduction with explantation of previous hip stem, reduction of fracture and revision arthroplasty of the right hip. This was due to periprosthetic hip fracture after ORIF done on the . This was done on 10/03/[address] Merino. She was subsequently discharged to [facility]. Now, she comes back with altered mental state and apparent bleeding from her right hip. Currently, she is not fully oriented. She knows she is in [place] emergency room here, but has been profusely talking, which is not making any sense for the most part. She is not in any pain as such at present. She was given a dose of vancomycin and ceftriaxone, and liter of normal saline in the ER, which is unclear. Again, the reason for antibiotics is unclear at present. She has had most of her initial lab workup done at [facility]. PAST MEDICAL AND SURGICAL HISTORY: History of bipolar disorder, hypertension, dyslipidemia, anxiety, depression, right hip replacement, left wrist surgery, left leg surgery, and HIV. PERSONAL HISTORY: Quit smoking early part of this year. Does not abuse street drugs. She drinks alcohol socially. She is currently in a shelter facility for rehab. FAMILY HISTORY: Not known as the patient is not oriented at person. ALLERGIES: NO KNOWN DRUG ALLERGIES. MEDICATIONS: The patient was discharged on the with following medications ; 1. Amitriptyline 150 mg p.o. at bedtime. 2. Cogentin 1 mg p.o. twice daily. 3. Vitamin D3 daily. 4. Atripla one tablet at bedtime. 5. Fenofibrate 145 mg p.o. at bedtime. 6. Gabapentin 900 mg p.o. 3 times daily. 7. Humulin R sliding scale. 8. Hydroxyzine 100 mg twice daily. 9. Motrin 600 mg 3 times daily p.r.n. 10. Lisinopril with hydrochlorothiazide 10/12.5 mg daily. 11. [place] 900 mg p.o. at bedtime and 600 mg p.o. q.a.m. 12. Trazodone 200 mg p.o. at bedtime. 13. [place] p.r.n. for pain. REVIEW OF SYSTEMS: The review of systems cannot be accurately obtained as the patient is not oriented and is confused at present. CODE STATUS: Full. PHYSICAL EXAMINATION: GENERAL: The patient is a 54-year-old female, who is currently confused and is not oriented, but not in any acute distress. VITAL SIGNS: Blood pressure 120/62, pulse 88 per minute, respiratory rate 18 per minute, temperature 97.1 degrees Fahrenheit, and saturating 99% on room air. NECK: Supple. No elevated JVD. HEENT: Eyes; extraocular muscles intact. Pupils reacting to light. Oral cavity, mucous membranes are dry. No exudates or congestion. CARDIOVASCULAR SYSTEM: S1 and S2 heard, regular rhythm. RESPIRATORY: Air entry 1+ bilateral. No rales or rhonchi. ABDOMEN: Soft. Bowel sounds heard. No tenderness, rigidity, or guarding. EXTREMITIES: Right hip and leg area is edematous due to postop status. No calf tenderness. VASCULAR SYSTEM: Peripheral pulses 1+ bilateral. No ischemic ulcerations or gangrene. CENTRAL NERVOUS SYSTEM: No gross focal motor deficits noted. The patient is alert and awake, but is not oriented. PSYCHIATRIC: Cannot be accurately assessed as she is confused at present and is not oriented. LABORATORY DATA: White count of 6, H and H of 8.9 and 26, platelet count 270, and MCV is 96 with 70% neutrophils. Potassium is 3.0, serum bicarb 19, BUN 9, creatinine 0.7, and serum glucose 167. AST and ALT within normal limits, alkaline phosphatase is 179, and albumin is 3.1. Pelvic CT done shows internal fixation of right hip and proximal femur fracture. There is non-loculated fluid around right gluteal subcutaneous fat musculature. There is also right greater trochanter intertrochanteric and subtrochanteric fracture, which extends into right mid femoral diaphysis. EKG done shows normal sinus rhythm at 90 beats per minute with underlying RBBB. CLINICAL IMPRESSION AND PLAN: The patient will be admitted to stroke unit for delirium versus acute metabolic encephalopathy. The patient is on multiple psychotropic medication and pain medications as well. We will try to streamline this. We will reduce her amitriptyline to 75 mg daily and change trazodone to 100 mg p.o. at bedtime. Neurontin will be reduced to 600 mg 3 times daily. We will continue her lithium at 900 at bedtime and 600 mg p.o. q.a.m. Clinically, the patient appears to be severely dehydrated and we will place her on 100 mL per hour. She has received a liter of fluid in the ER. She will be on Motrin and lidocaine patch for pain control. We will give morphine only for very severe pain. We will continue TriCor, Atripla. She will be on Lovenox 40 mg subcu daily for DVT prophylaxis. PT and OT evaluations will be requested. We will also consult Dr. Merino for Orthopedic Surgery. Aspiration and fall precautions will be followed. Job ID: [id number] [facility]
[2019-10-08] MEDS: Acetaminophen 325 MG TAB PO PRN ×2 (12:00→18:25)
[2019-10-08] MEDS: Sodium Chloride 0.9% 1,000 ML IV SCH ×2 (12:01→23:07)
[2019-10-08 12:39] VITALS: BMI 30.9
[2019-10-08] MEDS ORDERED: Prevnar 13-Val Conj/PF 0.5 ML SYRINGE IM ONE (13:45)
[2019-10-08] MEDS: Ibuprofen 200 MG TAB PO SCH ×2 (13:58→20:37)
[2019-10-08] MEDS: Gabapentin 300 MG CAP PO SCH ×2 (13:58→20:36)
[2019-10-08] MEDS ORDERED: Gabapentin 300 MG CAP PO SCH (15:00)
[2019-10-08] MEDS: Famotidine 20 MG TAB PO SCH (20:36)
[2019-10-08] MEDS: Morphine 2 MG/ML VIAL SLOW IVP PRN (20:36)
[2019-10-08] MEDS: Senokot S 8.6-50 MG TAB PO SCH (20:37)
[2019-10-08] MEDS ORDERED: Lithium Carbonate ER 450 mg Tablet PO SCH (21:00)
[2019-10-08] MEDS ORDERED: Emtricitabine/Tenofovir 200-300 MG TAB PO SCH (21:00)
[2019-10-08] MEDS ORDERED: Fenofibrate Nanocrystallized 145 MG TAB PO SCH (21:00)
[2019-10-09] MEDS: Acetaminophen 325 MG TAB PO PRN ×2 (00:14→11:49)
[2019-10-09] MEDS: Morphine 2 MG/ML VIAL SLOW IVP PRN (03:06)
[2019-10-09] MEDS: HumaLOG 300 UNITS/3 ML VIAL SC PRN ×2 (05:31→11:36)
[2019-10-09 05:58] LABS: #Eosinphils 0.2 thou/uL (0.0-0.7); #Lymphocytes 1.3 thou/uL (1.20-3.40); #Monocytes 0.4 thou/uL (0.11-0.59); %Basophils 0.4 % (0.0-1.0); %Lymphocytes 21.9 % (21.0-51.0); %Monocytes 6.9 % (0.0-10.0); %Neutrophils 66.8 % (42.0-75.0); Hemoglobin 8.1 g/dL (12.0-16.0); Mean Corpuscular HGB CONC 33.5 g/dL (32.0-36.0); Mean Corpuscular Hemoglobin 32.1 pg (27.0-31.0); Mean Corpuscular Volume 95.9 fL (78.0-98.0); Platelet Count 250 thou/uL (130-400); RBC Distribution Width 12.6 % (11.5-14.5); Red Blood Cell (RBC) Count 2.53 mill/uL (4.20-5.40)
[2019-10-09 06:14] LABS: Anion Gap 9 mmol/L (10-20); BUN (Urea Nitrogen) 11 mg/dL (9.8-20.1); Calc. Creatinine Clearance 102 mL/min (70-130); Calcium 9.9 mg/dL (7.8-10.44); Carbon Dioxide 16 mmol/L (22-29); Chloride 115 mmol/L (98-107); Estimated GFR-MDRD 74; Glucose 160 mg/dL (70-105); Potassium 3.3 mmol/L (3.5-5.1); Sodium 137 mmol/L (136-145)
[2019-10-09] MEDS ORDERED: Enoxaparin Sodium 40 MG/0.4 ML SYRINGE SC SCH (09:00)
[2019-10-09] MEDS ORDERED: Lidocaine 5% Patch TD SCH (09:00)
[2019-10-09] MEDS: Ibuprofen 200 MG TAB PO SCH (09:28)
[2019-10-09] MEDS: Famotidine 20 MG TAB PO SCH (09:28)
[2019-10-09] MEDS: Senokot S 8.6-50 MG TAB PO SCH (09:29)
[2019-10-09] MEDS: Gabapentin 300 MG CAP PO SCH (09:29)
[2019-10-09 11:56] VITALS: BP 159/104; TEMP 97.5
--- NOTE | 2019-10-09 14:57 | DIS ---
DATE OF ADMISSION: 10/08/2019 DATE OF DISCHARGE: 10/09/2019 DISCHARGE DISPOSITION: To [facility]. PRIMARY DISCHARGE DIAGNOSIS: Altered mental state, resolved. SECONDARY DISCHARGE DIAGNOSES: History of bipolar disorder, polypharmacy, hypertension, recent right hip surgery with redo due to fall, depression, anxiety, dyslipidemia, and history of HIV. PROCEDURES DONE DURING HOSPITALIZATION: Pelvic CAT scan done on 10/08/2019, showed ORIF of right hip and proximal femur fracture. Blood cultures x2, no growth. Urine culture, no growth. White count of 6, H and H of 8 and 24, platelet count 250, MCV is 95 with 66% neutrophils. BUN 11, creatinine 0.8, serum glucose 160. Liver enzymes; AST and ALT within normal limits. Albumin is 3.1. [place] levels were 0.35. DISCHARGE MEDICATIONS: 1. Atripla 1 tablet at bedtime. 2. Humalog sliding scale as before. 3. Lisinopril with hydrochlorothiazide 10/12.5 mg p.o. daily. 4. Trazodone 200 mg p.o. at bedtime. 5. Amitriptyline 75 mg p.o. daily. 6. Lovenox 40 mg subcu daily for DVT prophylaxis post hip surgery. 7. Gabapentin 300 mg p.o. 3 times daily. 8. Motrin 400 mg p.o. 3 times daily for another 15 days for postop pain. 9. Lidocaine 5% transdermal patch for postop pain. 10. [place] 600 mg p.o. q.a.m. and 900 mg p.o. q.p.m. ALLERGIES: NO KNOWN DRUG ALLERGIES. DISCHARGE PLAN: The patient to follow up with Dr. Merino in 10 days. BRIEF COURSE DURING HOSPITALIZATION: The patient initially was sent over from [facility] for bleeding of the right hip surgical site. On arrival at [facility], the patient was also found to be confused. In view of above 2 mentioned factors, the patient was placed under observation. The patient has had right total hip arthroplasty done on 09/26/2019, and has had a redo procedure done for periprosthetic hip fracture due to mechanical fall at home. The patient has underlying bipolar disorder and is also on multiple psychotropic medications and pain medications. Likely, this has led to cognitive impairment. She was gently hydrated during her stay here. The patient has had murguia-cultures obtained, which have not revealed any infection. Her medications were optimized during her stay here. Amitriptyline was reduced to 75 mg daily. Cogentin was discontinued. The patient's hydroxyzine was discontinued as well and so was her [place]. She was placed on Motrin 400 mg 3 times daily and lidocaine transdermal patch 5% x2 for the pain. She has done well with above measures. The patient needs outpatient psychiatrist appointment for possible antipsychotic medications. For now, we will continue the above medications to prevent further deconditioning. She is nonweightbearing for a total of 6 weeks from the time of surgery per Dr. Merino. Her CAT scan was reviewed by orthopedic surgeons during her stay here and no further intervention is planned. She needs to continue exercises on her bed and Lovenox needs to be continued to prevent DVT. The patient also needs to continue Atripla as before for her HIV. Please note, I have seen and examined the patient on the day of discharge. Job ID: [id number]
[2019-10-09] MEDS ORDERED: Lidocaine Patch Removal TOP SCH (21:00)
--- NOTE | 2019-10-12 06:03 | PQF ---
Dear : Donna Cuello Date 10/12/19 Please exercise your independent, professional judgment in responding to the clarification form. Clinical indicators are provided on the bottom of this form for your review Can you please further clarify the Diagnosis of the patient? Please check appropriate box(es): [ ] Metabolic encephalopathy due to medication [ ] Delirium due to medication [ ] Other diagnosis please specify [ x] Unable to determine Physician Signature: Date/Time: For continuity of documentation, please document condition throughout progress notes and discharge summary. Thank You. To be completed by CDI/Coding staff for physician review: Present Clinical Indicators - Signs / Symptoms / Labs Results and Location in Medical Record [ X ] Altered mental status H and P pg.1 [ X ] Currently confused and is not oriented H and P pg.1 [ X ] Admitted to stroke unit for delirium versus acute metabolic encephalopathy H and P pg.1 [ X ] The patient psychotropic medication and pain medication as well H and P pg.3 [ X ] We will reduced her amitriptyline to 75 mg and changed trazodone to 100 mg PO H and P pg.3 [ X ] Altered mental state, resolved DS pg.1 Present Risk Factors Results and Location in Medical Record [ X ] Bipolar disorder H and P pg.1 [ X ] Polypharmacy [ X ] HTN H and P pg.1 [ X ] dyslipidemia H and P pg.1 [ X ] Anxiety H and P pg.1 [ X ] Depression H and P pg.1 [ X ] Dehydration H and P pg.1 Present Treatments Results and Location in Medical Record [ X ] IV Fluids MAR [ X ] Reduce her amitriptyline to 75mg daily H and P p3 [ X ] Neurontin reduced to 600 mg PO H and P p3 CDS/Anodize Machine Operator Signature: [place] Phone #: ext [phone] Date 10/12/2019 [place]
== END 2019-10-09 13:11 | DRG 57 ==
LOC: ERS 06:17 → 2SE 11:01
PROVIDERS: ADMIT Internal Medicine; ATTEND Internal Medicine
DX: G31.84 Mild cognitive impairment of uncertain or unknown etiology (principal); R41.82 Altered mental status, unspecified; T43.95XA Adverse effect of unspecified psychotropic drug, initial encounter; T39.1X5A Adverse effect of 4-Aminophenol derivatives, initial encounter; R41.0 Disorientation, unspecified; F31.9 Bipolar disorder, unspecified; I10 Essential (primary) hypertension; F41.9 Anxiety disorder, unspecified; E78.5 Hyperlipidemia, unspecified; Z96.641 Presence of right artificial hip joint; Z21 Asymptomatic human immunodeficiency virus [HIV] infection status; F19.988 Other psychoactive substance use, unspecified with other psychoactive substance-induced disorder; E86.0 Dehydration; Z87.891 Personal history of nicotine dependence
CPT/HCPCS: 36415; 36416; 72192; 80048; 80053; 80178; 82140; 85025; 87040; 87086; 96365; 96366; 96368; J0696; J1650; J2270; J3370; Q9967

== ENCOUNTER 2020-11-28 09:17 | Outpatient (CLI) | payer MEDICARE, MEDICAID | END 2020-11-28 09:18 | disposition home or self-care (01) | LOC: ULT 09:17 | PROVIDERS: ATTEND Internal Medicine Infectious Disease | DX: B19.20 Unspecified viral hepatitis C without hepatic coma (principal); R16.0 Hepatomegaly, not elsewhere classified; K76.89 Other specified diseases of liver; K76.0 Fatty (change of) liver, not elsewhere classified | CPT/HCPCS: 76705 ==

== ENCOUNTER 2021-07-24 22:14 | Inpatient (IN) | payer MEDICARE, MEDICAID ==
[2021-07-25 01:22] VITALS: BMI 30.4
[2021-07-25] MEDS ORDERED: Dextrose 50% Abboject 50 ML SYRINGE SLOW IVP PRN (01:46)
[2021-07-25] MEDS ORDERED: Ondansetron ODT 4 MG TAB PO PRN (01:46)
[2021-07-25] MEDS ORDERED: Dextrose 5% in Water 1,000 ML IV PRN (01:46)
[2021-07-25] MEDS ORDERED: Benzonatate 100 MG CAP PO PRN (01:46)
[2021-07-25] MEDS ORDERED: HumaLOG 300 UNITS/3 ML VIAL SC PRN (01:46)
[2021-07-25] MEDS ORDERED: Ondansetron PF 4 MG/2 ML Vial IVP PRN (01:46)
[2021-07-25] MEDS ORDERED: hydrALAZINE 20 MG/ML VIAL SLOW IVP PRN (01:46)
[2021-07-25] MEDS ORDERED: Vancomycin HCl 1 GM in Sodium Chloride 0.9% 250 ML 300 ML IVPB SCH (01:46)
[2021-07-25] MEDS ORDERED: Loperamide HCl 2 MG CAP PO PRN (01:46)
[2021-07-25] MEDS ORDERED: Ketorolac Tromethamine 30 MG/ML VIAL IVP SCH (02:00)
[2021-07-25] MEDS ORDERED: traZODone HCl 50 MG TAB PO SCH (02:15)
[2021-07-25] MEDS: Sodium Chloride 0.9% 1,000 ML IV SCH ×3 (02:27→22:02)
[2021-07-25] MEDS: cefTRIAXone\\ROCEPHIN 2 GM in Sodium Chloride 0.9% 100 ML IVPB SCH (02:29)
[2021-07-25] MEDS ORDERED: Potassium Bicarbonate/Cit Ac 20 MEQ TAB PO SCH (02:30)
[2021-07-25 02:37] LABS: SARS-CoV-2 NAA Rapid Test Not Detected (NotDetected)
[2021-07-25] MEDS ORDERED: Vancomycin 1.5 GRAM/300 ML BAG 1.5 GM in Premix Bag 1 BAG IVPB SCH (02:45)
[2021-07-25 04:55] LABS: ALT (SGPT) 13 U/L (8-55); AST (SGOT) 10 U/L (5-34); Albumin 2.7 g/dL (3.5-5.0); Alkaline Phosphatase 101 U/L (40-110); Anion Gap 12 mmol/L (10-20); BUN (Urea Nitrogen) 43 mg/dL (9.8-20.1); Bilirubin, Total 0.9 mg/dL (0.2-1.2); Calc. Creatinine Clearance 47 mL/min (70-130); Calcium 9.1 mg/dL (7.8-10.44); Carbon Dioxide 16 mmol/L (22-29); Chloride 103 mmol/L (98-107); Globulin 3.3 g/dL (2.4-3.5); Glucose 363 mg/dL (70-105); Magnesium 2.1 mg/dL (1.6-2.6); Sodium 127 mmol/L (136-145)
[2021-07-25 05:30] LABS: #Lymphocytes 0.4 thou/uL (1.20-3.40); #Neutrophils 8.8 thou/uL (1.40-6.50); %Basophils 0.1 % (0.0-1.0); %Eosinophils 0.3 % (0.0-10.0); %Monocytes 9.3 % (0.0-10.0); %Neutrophils 86.3 % (42.0-75.0); Hemoglobin 10.2 g/dL (12.0-16.0); Mean Corpuscular HGB CONC 34.9 g/dL (32.0-36.0); Mean Corpuscular Hemoglobin 33.6 pg (27.0-31.0); Mean Corpuscular Volume 96.3 fL (78.0-98.0); Mean Platelet Volume 8.9 fL (7.4-10.4); Platelet Count 104 thou/uL (130-400); Platelet Morphology Comment Appears Decreased; RBC Distribution Width 12.2 % (11.5-14.5); Red Blood Cell (RBC) Count 3.02 mill/uL (4.20-5.40); White Blood Cell (WBC) Count 10.2 thou/uL (4.8-10.8)
[2021-07-25] MEDS: HumaLOG 300 UNITS/3 ML VIAL SC PRN ×2 (05:48→18:25)
[2021-07-25] MEDS ORDERED: [UNRECOGNIZED DRUG - OTHER] PO SCH (09:00)
[2021-07-25] MEDS: Famotidine 20 MG TAB PO SCH (10:01)
[2021-07-25] MEDS: Aripiprazole 10 MG TAB PO SCH (10:01)
[2021-07-25] MEDS: hydrOXYzine 25 MG TAB PO SCH ×3 (10:01→20:42)
[2021-07-25] MEDS: Carvedilol 3.125 MG TAB PO SCH ×2 (10:02→18:24)
[2021-07-25] MEDS: Empagliflozin 10 MG TAB PO SCH (10:03)
[2021-07-25] MEDS: Ketorolac Tromethamine 30 MG/ML VIAL IVP PRN (16:01)
[2021-07-25] MEDS: traZODone HCl 50 MG TAB PO SCH (20:42)
[2021-07-25] MEDS: Acetaminophen 500 MG TAB PO PRN (20:43)
[2021-07-25] MEDS ORDERED: Vancomycin HCl 750 MG in Sodium Chloride 0.9% 250 ML 250 ML IVPB SCH (23:59)
[2021-07-26] MEDS: cefTRIAXone\\ROCEPHIN 2 GM in Sodium Chloride 0.9% 100 ML IVPB SCH (02:28)
[2021-07-26] MEDS: Ketorolac Tromethamine 30 MG/ML VIAL IVP PRN (02:41)
[2021-07-26] MEDS: Sodium Chloride 0.9% 1,000 ML IV SCH ×2 (03:57→12:24)
[2021-07-26] MEDS: HumaLOG 300 UNITS/3 ML VIAL SC PRN ×2 (05:55→19:21)
[2021-07-26 09:57] LABS: Anion Gap 12 mmol/L (10-20); BUN (Urea Nitrogen) 29 mg/dL (9.8-20.1); Calc. Creatinine Clearance 77 mL/min (70-130); Calcium 9.5 mg/dL (7.8-10.44); Carbon Dioxide 17 mmol/L (22-29); Chloride 110 mmol/L (98-107); Glucose 244 mg/dL (70-105); Potassium 3.5 mmol/L (3.5-5.1); Sodium 135 mmol/L (136-145)
[2021-07-26] MEDS: Famotidine 20 MG TAB PO SCH ×2 (10:15→20:33)
[2021-07-26] MEDS: Carvedilol 3.125 MG TAB PO SCH ×2 (10:15→16:10)
[2021-07-26] MEDS: Aripiprazole 10 MG TAB PO SCH (10:16)
[2021-07-26] MEDS: Empagliflozin 10 MG TAB PO SCH (10:17)
[2021-07-26] MEDS: hydrOXYzine 25 MG TAB PO SCH ×3 (10:17→20:32)
[2021-07-26] MEDS: traZODone HCl 50 MG TAB PO SCH (20:32)
[2021-07-26] MEDS: Acetaminophen 500 MG TAB PO PRN (20:36)
[2021-07-26] MEDS: Communication Order-Pharmacy FS SCH (21:51)
[2021-07-27] MEDS: cefTRIAXone\\ROCEPHIN 2 GM in Sodium Chloride 0.9% 100 ML IVPB SCH (02:19)
[2021-07-27] MEDS: Communication Order-Pharmacy FS SCH (02:38)
[2021-07-27] MEDS ORDERED: Communication Order-Pharmacy FS SCH (02:45)
[2021-07-27] MEDS: HumaLOG 300 UNITS/3 ML VIAL SC PRN ×2 (08:07→12:37)
[2021-07-27] MEDS: Famotidine 20 MG TAB PO SCH (09:20)
[2021-07-27] MEDS: Carvedilol 3.125 MG TAB PO SCH (09:20)
[2021-07-27] MEDS: Aripiprazole 10 MG TAB PO SCH (09:20)
[2021-07-27] MEDS: hydrOXYzine 25 MG TAB PO SCH (09:21)
[2021-07-27] MEDS: Empagliflozin 10 MG TAB PO SCH (09:21)
[2021-07-27] MEDS: Acetaminophen 500 MG TAB PO PRN (09:22)
[2021-07-27 13:56] VITALS: BP 136/68; TEMP 98.5
== END 2021-07-27 13:50 | disposition home or self-care (01) | DRG 872 ==
LOC: 2NO 07-25 00:53
PROVIDERS: ADMIT Family Medicine; ATTEND Internal Medicine
DX: A41.51 Sepsis due to Escherichia coli [E. coli] (principal); N17.9 Acute kidney failure, unspecified; E87.1 Hypo-osmolality and hyponatremia; N12 Tubulo-interstitial nephritis, not specified as acute or chronic; E11.9 Type 2 diabetes mellitus without complications; Z21 Asymptomatic human immunodeficiency virus [HIV] infection status; I10 Essential (primary) hypertension; R65.20 Severe sepsis without septic shock; E87.6 Hypokalemia; E86.0 Dehydration; N30.90 Cystitis, unspecified without hematuria; F31.9 Bipolar disorder, unspecified; Z20.822 Contact with and (suspected) exposure to COVID-19; Z87.01 Personal history of pneumonia (recurrent); Z98.890 Other specified postprocedural states; Z82.49 Family history of ischemic heart disease and other diseases of the circulatory system; Z72.89 Other problems related to lifestyle; Z79.84 Long term (current) use of oral hypoglycemic drugs; Z79.899 Other long term (current) drug therapy
CPT/HCPCS: 36415; 36416; 76770; 80048; 80053; 83735; 85025; 87040; J0696; J1815; J1885; J3370; J3490; J7050

== ENCOUNTER 2022-08-12 12:06 | Outpatient (CLI) | payer OTHER, MEDICAID ==
[2022-08-12 13:11] LABS: Hemoglobin 10.5 g/dL (12.0-15.5); Mean Corpuscular Hemoglobin 33.7 pg (27.0-33.0); Mean Corpuscular Volume 101.9 fl (81.6-98.3); Mean Platelet Volume 9.8 fl (7.4-10.4); Platelet Count 155 10x3/uL (150-450); Red Blood Cell (RBC) Count 3.12 10x6/uL (3.90-5.03); White Blood Cell (WBC) Count 5.5 10x3/uL (3.5-10.5)
[2022-08-12 13:20] LABS: INR-International Normal Ratio 0.9; PTT 25.3 sec (22.0-33.0)
[2022-08-12 13:22] LABS: ALT (SGPT) 21 U/L (8-55); AST (SGOT) 31 U/L (5-34); Albumin 3.9 g/dL (3.5-5.0); Alkaline Phosphatase 99 U/L (40-110); Anion Gap 13 mmol/L (10-20); BUN (Urea Nitrogen) 15 mg/dL (9.8-20.1); Bilirubin, Direct 0.2 mg/dL (0.1-0.3); Bilirubin, Total 0.3 mg/dL (0.2-1.2); Calc. Creatinine Clearance 0 mL/min (70-130); Calcium 9.9 mg/dL (7.8-10.44); Carbon Dioxide 22 mmol/L (22-29); Chloride 106 mmol/L (98-107); Estimated GFR 81; Glucose 174 mg/dL (70-105); Potassium 4.7 mmol/L (3.5-5.1); Protein, Total 6.8 g/dL (6.0-8.3); Sodium 136 mmol/L (136-145)
== END 2022-08-12 12:07 | disposition home or self-care (01) ==
LOC: LABBT 12:06
PROVIDERS: ATTEND Orthopaedic Surgery
DX: Z01.818 Encounter for other preprocedural examination (principal); S82.843A Displaced bimalleolar fracture of unspecified lower leg, initial encounter for closed fracture
CPT/HCPCS: 80048; 80076; 85027; 85610; 85730; 93005; 93010

== ENCOUNTER 2022-08-13 10:39 | Day surgery (SDC) | payer OTHER, MEDICAID ==
[2022-08-12 12:58] VITALS: BMI 34.3
[2022-08-13] MEDS ORDERED: Ropivacaine 0.5% HCl/PF (150 MG/30 ML VIAL) ONE (11:09)
[2022-08-13] MEDS ORDERED: fentaNYL 50 mcg/mL 1 mL Vial ONE (11:09)
[2022-08-13] MEDS ORDERED: Bupivacaine PF 0.5% 30 ML VIAL ONE (11:09)
[2022-08-13] MEDS ORDERED: Midazolam HCl 2 mg/2 ml Vial ONE (11:09)
[2022-08-13] MEDS ORDERED: Sodium Chloride 0.9% 100 ML ONE (12:07)
[2022-08-13] MEDS ORDERED: CEFAZOLIN 2 GM VIAL ONE (12:07)
[2022-08-13] MEDS ORDERED: fentaNYL PF 100 MCG/2 ML SYRINGE ONE (12:37)
[2022-08-13] MEDS ORDERED: fentaNYL 50 mcg/mL 1 mL Vial SLOW IVP PRN (12:48)
[2022-08-13] MEDS ORDERED: Lidocaine 1% PF 5 ML VIAL ONE (12:57)
[2022-08-13] MEDS ORDERED: PHENYLEPHRINE-NS 100 MCG/ML 10 ML SYRINGE ONE (12:57)
[2022-08-13] MEDS ORDERED: PROPOFOL 200 MG/20 ML VIAL ONE (12:57)
[2022-08-13] MEDS ORDERED: Ondansetron PF 4 MG/2 ML Vial ONE (12:57)
[2022-08-13] MEDS ORDERED: ePHEDrine Sulfate 50 MG/10 ML VIAL ONE (12:57)
[2022-08-13] MEDS ORDERED: Zolpidem Tartrate 5 MG TAB PO PRN (13:00)
[2022-08-13] MEDS ORDERED: traMADol HCl 50 MG TAB PO PRN ×2 (13:00)
[2022-08-13] MEDS ORDERED: Ondansetron PF 4 MG/2 ML Vial IVP PRN (13:00)
[2022-08-13] MEDS ORDERED: Promethazine HCl 25 MG/ML VIAL IM PRN (13:00)
[2022-08-13] MEDS ORDERED: Ropivacaine 0.2% 550 ML 550 ML NERVE BLCK SCH (13:00)
[2022-08-13] MEDS ORDERED: HYDROcodone/Acetaminophen 10/325 mg Tablet PO PRN ×2 (13:00)
== END 2022-08-13 15:41 | disposition home or self-care (01) ==
LOC: SDC 10:39
PROVIDERS: ATTEND Orthopaedic Surgery
PROC: 0QSK04Z Reposition Left Fibula with Internal Fixation Device, Open Approach (ICD-10-PCS; principal; 2022-08-13)
PROC: 0QSH04Z Reposition Left Tibia with Internal Fixation Device, Open Approach (ICD-10-PCS; 2022-08-13)
DX: S82.842A Displaced bimalleolar fracture of left lower leg, initial encounter for closed fracture (principal); I10 Essential (primary) hypertension; E78.5 Hyperlipidemia, unspecified; E11.9 Type 2 diabetes mellitus without complications; F17.210 Nicotine dependence, cigarettes, uncomplicated; I25.10 Atherosclerotic heart disease of native coronary artery without angina pectoris; Z96.641 Presence of right artificial hip joint; Z79.899 Other long term (current) drug therapy; X58.XXXA Exposure to other specified factors, initial encounter
CPT/HCPCS: 27814; 73610; A4306; C1713 ×2; C1874; J3010; J2250; J2405; J2704; J2795; J3490; S0020

== ENCOUNTER 2023-02-26 05:33 | Inpatient (IN) | payer MEDICARE, MEDICAID ==
[2023-02-26] MEDS ORDERED: NOREPINEPHRINE 8 MG/250 ML-D5W 250 ML ONE (05:36)
[2023-02-26] MEDS ORDERED: fentaNYL 50 mcg/mL 1 mL Vial ONE ×2 (06:01→07:54)
[2023-02-26 06:34] LABS: #Basophils 0.1 thou/uL (0.0-0.2); #Eosinphils 0.2 thou/uL (0.0-0.7); #Monocytes 1.2 thou/uL (0.11-0.59); %Basophils 0.3 % (0.0-1.0); %Eosinophils 1.5 % (0.0-10.0); %Lymphocytes 14.4 % (21.0-51.0); %Monocytes 8.2 % (0.0-10.0); %Neutrophils 75.1 % (42.0-75.0); Hematocrit 35.4 % (36.0-47.0); Hemoglobin 12.3 g/dL (12.0-16.0); Mean Corpuscular HGB CONC 34.7 g/dL (32.0-36.0); Mean Corpuscular Hemoglobin 35.1 pg (27.0-31.0); Mean Corpuscular Volume 101.1 fl (78.0-98.0); Mean Platelet Volume 10.8 fL (7.4-10.4); Platelet Count 221 10x3/uL (130-400); RBC Distribution Width 12.5 % (11.5-14.5); White Blood Cell (WBC) Count 14.6 10x3/uL (4.8-10.8)
[2023-02-26 06:51] LABS: INR-International Normal Ratio 1.3; Prothrombin Time 16.1 sec (12.0-14.7)
[2023-02-26 06:52] LABS: PTT 87.7 sec (22.9-36.1)
[2023-02-26 06:55] LABS: Troponin I 0.046 ng/mL (< 0.028)
[2023-02-26 07:03] LABS: ALT (SGPT) 38 U/L (8-55); AST (SGOT) 53 U/L (5-34); Albumin 3.4 g/dL (3.5-5.0); Alkaline Phosphatase 207 U/L (40-110); Anion Gap 16 mmol/L (10-20); BUN (Urea Nitrogen) 32 mg/dL (9.8-20.1); Bilirubin, Total 0.7 mg/dL (0.2-1.2); Calc. Creatinine Clearance 0 mL/min (70-130); Calcium 8.9 mg/dL (7.8-10.44); Carbon Dioxide 14 mmol/L (22-29); Chloride 105 mmol/L (98-107); Estimated GFR 22; Globulin 3.2 g/dL (2.4-3.5); Glucose 221 mg/dL (70-105); Potassium 3.5 mmol/L (3.5-5.1); Protein, Total 6.6 g/dL (6.0-8.3); Sodium 131 mmol/L (136-145)
[2023-02-26] MEDS ORDERED: Vancomycin (BATCH) 1.5 GM in Premix 1 BAG IVPB SCH (07:45)
[2023-02-26 07:53] LABS: Lipase 320 U/L (8-78); Phosphorus 3.2 mg/dL (2.3-4.7)
[2023-02-26 08:13] LABS: Base Excess -10.9 mEq/L (-2.0 to +3.0); Calcium, Ionized (venous) 1.23 mmol/L (1.16-1.32); Chloride (VBG) 103 mmol/L (98-106); Hematocrit-VBG 39 % (36.0-47.0); Hemoglobin (Hb) 13.4 g/dL (11.7-16.0); Potassium (VBG) 3.95 mmol/L (3.70-5.30); Sodium 134 mmol/L (133-146); pH (venous) 7.276 (7.32-7.43)
[2023-02-26 08:17] LABS: Actual Bicarbonate (HCO3v) 14.7 mEq/L (22-28)
[2023-02-26] MEDS ORDERED: NOREPINEPHRINE 8 MG/250 ML-D5W 250 ML IVPB PRN ×2 (09:28→10:46)
[2023-02-26 09:44] LABS: Lactic Acid 1.1 mmol/L (0.5-2.2)
[2023-02-26] MEDS ORDERED: Dextrose 5 %-0.45 % NaCl 1,000 ML IV PRN (09:48)
[2023-02-26] MEDS ORDERED: NS 0.9% w/ 20 MEQ KCL 1,000 ML IV PRN ×2 (09:48)
[2023-02-26] MEDS ORDERED: Dextrose 50% Abboject 50 ML SYRINGE SLOW IVP PRN (09:48)
[2023-02-26] MEDS ORDERED: D5 1/2 NS w/20 mEq KCL 1,000 ML IV PRN (09:48)
[2023-02-26] MEDS ORDERED: Sodium Chloride 0.9% 1,000 ML IV PRN ×4 (09:48)
[2023-02-26] MEDS ORDERED: Electrolyte Replacement Protocol IVPB SCH (09:48)
[2023-02-26] MEDS ORDERED: Insulin Glargine 30 UNITS/0.3 ML VIAL SC SCH (10:00)
[2023-02-26] MEDS ORDERED: HUMULIN R 100 UNITS in Sodium Chloride 0.9% 100 ML IVPB SCH (10:00)
[2023-02-26 10:33] LABS: Hemoglobin A1c 10.2 % (4.0-6.0)
[2023-02-26 11:49] VITALS: BMI 33.7
[2023-02-26] MEDS ORDERED: Lactated Ringer's 1,000 ML IV SCH (12:15)
[2023-02-26] MEDS ORDERED: Vancomycin Dose by Levels Sliding Scale (Wt 71-99) FS SCH (12:30)
[2023-02-26 13:39] LABS: Troponin I 0.026 ng/mL (< 0.028)
[2023-02-26 15:56] LABS: Anion Gap 15 mmol/L (10-20); BUN (Urea Nitrogen) 30 mg/dL (9.8-20.1); Calc. Creatinine Clearance 43 mL/min (70-130); Calcium 9.9 mg/dL (7.8-10.44); Carbon Dioxide 15 mmol/L (22-29); Chloride 105 mmol/L (98-107); Estimated GFR 28; Sodium 131 mmol/L (136-145)
[2023-02-26] MEDS ORDERED: Cefepime 1 GM in Sodium Chloride 0.9% 100 ML IVPB SCH (16:00)
[2023-02-26 16:06] LABS: Glucose 482 mg/dL (70-105)
[2023-02-26] MEDS: Acetaminophen 325 MG TAB PO PRN ×2 (16:24→20:28)
[2023-02-26 19:12] LABS: Anion Gap 13 mmol/L (10-20); BUN (Urea Nitrogen) 24 mg/dL (9.8-20.1); Calc. Creatinine Clearance 68 mL/min (70-130); Calcium 9.6 mg/dL (7.8-10.44); Carbon Dioxide 18 mmol/L (22-29); Chloride 109 mmol/L (98-107); Estimated GFR 49; Glucose 145 mg/dL (70-105); Potassium 3.3 mmol/L (3.5-5.1); Sodium 137 mmol/L (136-145)
[2023-02-26] MEDS ORDERED: Potassium Chloride 20 MEQ TAB PO SCH (19:45)
[2023-02-26] MEDS ORDERED: Vancomycin 1.5 GM in Sodium Chloride 0.9% 250 ML 300 ML IVPB SCH (21:00)
[2023-02-26] MEDS ORDERED: HumaLOG 300 UNITS/3 ML VIAL SC PRN (21:01)
[2023-02-26] MEDS ORDERED: Glucagon 1 MG/ML KIT IM PRN (21:01)
[2023-02-26] MEDS ORDERED: Dextrose 5% in Water 1,000 ML IV PRN (21:01)
[2023-02-26] MEDS: HumaLOG 300 UNITS/3 ML VIAL SC PRN (21:22)
[2023-02-27 04:36] LABS: #Eosinphils 0.1 thou/uL (0.0-0.7); #Monocytes 0.7 thou/uL (0.11-0.59); #Neutrophils 6.1 thou/uL (1.40-6.50); %Basophils 0.3 % (0.0-1.0); %Eosinophils 1.7 % (0.0-10.0); %Lymphocytes 12.2 % (21.0-51.0); %Monocytes 8.4 % (0.0-10.0); %Neutrophils 77.1 % (42.0-75.0); Hematocrit 31.2 % (36.0-47.0); Mean Corpuscular HGB CONC 35.3 g/dL (32.0-36.0); Mean Corpuscular Hemoglobin 35.7 pg (27.0-31.0); Mean Corpuscular Volume 101.3 fl (78.0-98.0); Mean Platelet Volume 11.1 fL (7.4-10.4); Platelet Count 139 10x3/uL (130-400); RBC Distribution Width 12.6 % (11.5-14.5); Red Blood Cell (RBC) Count 3.08 mill/uL (4.20-5.40); White Blood Cell (WBC) Count 7.8 10x3/uL (4.8-10.8)
[2023-02-27] MEDS: HumaLOG 300 UNITS/3 ML VIAL SC PRN ×4 (04:43→20:55)
[2023-02-27 04:58] LABS: Anion Gap 11 mmol/L (10-20); BUN (Urea Nitrogen) 19 mg/dL (9.8-20.1); Calc. Creatinine Clearance 88 mL/min (70-130); Calcium 9.8 mg/dL (7.8-10.44); Carbon Dioxide 21 mmol/L (22-29); Chloride 106 mmol/L (98-107); Estimated GFR 68; Glucose 320 mg/dL (70-105); Potassium 3.8 mmol/L (3.5-5.1); Sodium 134 mmol/L (136-145)
[2023-02-27] MEDS: Enoxaparin 40 MG (0.4 mL) SYRINGE SC SCH (07:54)
[2023-02-27] MEDS: Insulin Glargine 30 UNITS/0.3 ML VIAL SC SCH (07:55)
[2023-02-27 08:40] LABS: Vancomycin, Random 8.1 ug/mL (See Comment)
[2023-02-27] MEDS ORDERED: Pantoprazole 40 MG VIAL IVP SCH (09:00)
[2023-02-27] MEDS ORDERED: Vancomycin 1 GM in Premix 1 BAG IVPB SCH (10:00)
[2023-02-27] MEDS: Sodium Chloride 0.9% 1,000 ML IV SCH (10:27)
[2023-02-27] MEDS ORDERED: Dextrose 50% Abboject 50 ML SYRINGE SLOW IVP PRN (10:49)
[2023-02-27] MEDS ORDERED: Dextrose 5% in Water 1,000 ML IV PRN (10:49)
[2023-02-27] MEDS ORDERED: Glucagon 1 MG/ML KIT IM PRN (10:49)
[2023-02-27] MEDS ORDERED: Cefepime 1 GM in Sodium Chloride 0.9% 100 ML IVPB SCH (12:00)
[2023-02-27] MEDS ORDERED: Cefepime 2 GM in Sodium Chloride 0.9% 100 ML IVPB SCH (12:00)
[2023-02-27] MEDS: tiZANidine HCl 4 MG TAB PO PRN (20:50)
[2023-02-27] MEDS: Carvedilol 3.125 MG TAB PO SCH (20:51)
[2023-02-27] MEDS: BIKTARVY 50-200-25 MG TABLET PO SCH (20:51)
[2023-02-27] MEDS: Amitriptyline HCl 100 MG TAB PO SCH (20:51)
[2023-02-27] MEDS ORDERED: BIKTARVY 50-200-25 MG TABLET PO SCH (21:00)
[2023-02-28] MEDS: Sodium Chloride 0.9% 1,000 ML IV SCH ×2 (03:50→18:25)
[2023-02-28] MEDS: HumaLOG 300 UNITS/3 ML VIAL SC PRN ×4 (05:45→20:56)
[2023-02-28 08:03] LABS: #Eosinphils 0.1 thou/uL (0.0-0.7); #Monocytes 0.4 thou/uL (0.11-0.59); #Neutrophils 3.3 thou/uL (1.40-6.50); %Basophils 0.6 % (0.0-1.0); %Eosinophils 2.1 % (0.0-10.0); %Lymphocytes 19.6 % (21.0-51.0); %Monocytes 8.6 % (0.0-10.0); %Neutrophils 68.9 % (42.0-75.0); Hematocrit 31.7 % (36.0-47.0); Hemoglobin 10.8 g/dL (12.0-16.0); Mean Corpuscular HGB CONC 34.1 g/dL (32.0-36.0); Mean Corpuscular Hemoglobin 35.1 pg (27.0-31.0); Mean Corpuscular Volume 102.9 fl (78.0-98.0); Mean Platelet Volume 11.1 fL (7.4-10.4); RBC Distribution Width 12.6 % (11.5-14.5); Red Blood Cell (RBC) Count 3.08 mill/uL (4.20-5.40); White Blood Cell (WBC) Count 4.8 10x3/uL (4.8-10.8)
[2023-02-28 08:22] LABS: ALT (SGPT) 34 U/L (8-55); AST (SGOT) 65 U/L (5-34); Albumin 2.9 g/dL (3.5-5.0); Alkaline Phosphatase 178 U/L (40-110); Anion Gap 13 mmol/L (10-20); BUN (Urea Nitrogen) 15 mg/dL (9.8-20.1); Bilirubin, Total 0.5 mg/dL (0.2-1.2); Calc. Creatinine Clearance 98 mL/min (70-130); Calcium 9.1 mg/dL (7.8-10.44); Carbon Dioxide 21 mmol/L (22-29); Chloride 106 mmol/L (98-107); Estimated GFR 77; Globulin 3.5 g/dL (2.4-3.5); Glucose 313 mg/dL (70-105); Potassium 3.3 mmol/L (3.5-5.1); Protein, Total 6.4 g/dL (6.0-8.3); Sodium 137 mmol/L (136-145)
[2023-02-28 08:26] LABS: Platelet Count 112 10x3/uL (130-400)
[2023-02-28] MEDS: Aripiprazole 10 MG TAB PO SCH (08:59)
[2023-02-28] MEDS: Carvedilol 3.125 MG TAB PO SCH ×2 (08:59→20:58)
[2023-02-28] MEDS: tiZANidine HCl 4 MG TAB PO PRN (08:59)
[2023-02-28] MEDS: Spironolactone 25 MG TAB PO SCH (08:59)
[2023-02-28] MEDS: Enoxaparin 40 MG (0.4 mL) SYRINGE SC SCH (08:59)
[2023-02-28] MEDS: Empagliflozin 10 MG TAB PO SCH (08:59)
[2023-02-28] MEDS: Insulin Glargine 30 UNITS/0.3 ML VIAL SC SCH ×2 (09:00→20:55)
[2023-02-28] MEDS: Lisinopril 20 MG TAB PO SCH (09:06)
[2023-02-28] MEDS ORDERED: Meloxicam 7.5 MG TAB PO PRN (09:10)
[2023-02-28] MEDS ORDERED: hydrOXYzine 25 MG TAB PO PRN (09:10)
[2023-02-28] MEDS ORDERED: Albuterol 2.5 MG (3 mL) NEB NEB PRN (10:09)
[2023-02-28] MEDS ORDERED: Lactulose 20 GM (30 mL) UDCUP PO PRN (10:15)
[2023-02-28] MEDS ORDERED: Betamethasone 0.1% Cream 15 GM TUBE TOP PRN (10:20)
[2023-02-28] MEDS: HYDROcodone/Acetaminophen 5/325 mg Tablet PO SCH ×3 (12:49→23:42)
[2023-02-28] MEDS ORDERED: glipiZIDE XL 10 mg ER.TAB PO SCH (17:17)
[2023-02-28] MEDS: metFORMIN 500 MG TAB PO SCH (18:19)
[2023-02-28] MEDS: Amitriptyline HCl 100 MG TAB PO SCH (20:56)
[2023-02-28] MEDS: BIKTARVY 50-200-25 MG TABLET PO SCH (20:58)
[2023-03-01 06:05] LABS: Anion Gap 12 mmol/L (10-20); BUN (Urea Nitrogen) 15 mg/dL (9.8-20.1); Calc. Creatinine Clearance 92 mL/min (70-130); Carbon Dioxide 18 mmol/L (22-29); Chloride 107 mmol/L (98-107); Estimated GFR 71; Glucose 307 mg/dL (70-105); Potassium 4.3 mmol/L (3.5-5.1); Sodium 133 mmol/L (136-145)
[2023-03-01] MEDS: HYDROcodone/Acetaminophen 5/325 mg Tablet PO SCH ×2 (06:09→12:11)
[2023-03-01] MEDS: HumaLOG 300 UNITS/3 ML VIAL SC PRN ×2 (06:10→12:11)
[2023-03-01] MEDS ORDERED: Insulin Glargine 30 UNITS/0.3 ML VIAL SC SCH (09:00)
[2023-03-01] MEDS: Carvedilol 3.125 MG TAB PO SCH (09:21)
[2023-03-01] MEDS: Lisinopril 20 MG TAB PO SCH (09:21)
[2023-03-01] MEDS: Aripiprazole 10 MG TAB PO SCH (09:21)
[2023-03-01] MEDS: Enoxaparin 40 MG (0.4 mL) SYRINGE SC SCH (09:21)
[2023-03-01] MEDS: Empagliflozin 10 MG TAB PO SCH (09:21)
[2023-03-01] MEDS: metFORMIN 500 MG TAB PO SCH (09:21)
[2023-03-01] MEDS: Spironolactone 25 MG TAB PO SCH (09:21)
[2023-03-01] MEDS: Insulin Glargine 30 UNITS/0.3 ML VIAL SC SCH (09:25)
[2023-03-01 11:46] LABS: #Eosinphils 0.1 thou/uL (0.0-0.7); #Monocytes 0.4 thou/uL (0.11-0.59); #Neutrophils 3.2 thou/uL (1.40-6.50); %Basophils 0.2 % (0.0-1.0); %Lymphocytes 16.4 % (21.0-51.0); %Neutrophils 72.2 % (42.0-75.0); Hematocrit 32.1 % (36.0-47.0); Hemoglobin 10.8 g/dL (12.0-16.0); Mean Corpuscular HGB CONC 33.6 g/dL (32.0-36.0); Mean Corpuscular Hemoglobin 35.4 pg (27.0-31.0); Mean Corpuscular Volume 105.2 fl (78.0-98.0); Platelet Count 94 10x3/uL (130-400); RBC Distribution Width 12.8 % (11.5-14.5); Red Blood Cell (RBC) Count 3.05 mill/uL (4.20-5.40); White Blood Cell (WBC) Count 4.4 10x3/uL (4.8-10.8)
[2023-03-01 11:55] VITALS: TEMP 98.1
[2023-03-01 15:44] VITALS: BP 150/95
== END 2023-03-01 16:40 | disposition home or self-care (01) | DRG 438 ==
LOC: ERS 05:33 → CCU 11:02 → SURG A 02-27 11:26
PROVIDERS: ADMIT Hospitalist; ATTEND Hospitalist
PROC: 02HV33Z Insertion of Infusion Device into Superior Vena Cava, Percutaneous Approach (ICD-10-PCS; principal; 2023-02-26)
PROC: 4A043R1 Measurement of Venous Saturation, Peripheral, Percutaneous Approach (ICD-10-PCS; 2023-02-26)
PROC: 3E033XZ Introduction of Vasopressor into Peripheral Vein, Percutaneous Approach (ICD-10-PCS; 2023-02-26)
DX: K85.20 Alcohol induced acute pancreatitis without necrosis or infection (principal); E11.10 Type 2 diabetes mellitus with ketoacidosis without coma; J18.9 Pneumonia, unspecified organism; B20 Human immunodeficiency virus [HIV] disease; N17.9 Acute kidney failure, unspecified; K74.60 Unspecified cirrhosis of liver; F31.9 Bipolar disorder, unspecified; Z79.899 Other long term (current) drug therapy; Z79.84 Long term (current) use of oral hypoglycemic drugs; Z90.89 Acquired absence of other organs; Z98.890 Other specified postprocedural states; F41.9 Anxiety disorder, unspecified; Z79.4 Long term (current) use of insulin; N18.30 Chronic kidney disease, stage 3 unspecified; I12.9 Hypertensive chronic kidney disease with stage 1 through stage 4 chronic kidney disease, or unspecified chronic kidney disease; E87.6 Hypokalemia
CPT/HCPCS: 36415; 36416; 36556; 71045; 74176; 80048; 80053; 80202; 82010; 82533; 82805; 83036; 83605; 83690; 83735; 84100; 85025; 93005; 94760; 96365; 96366; 96375; C9113; J0692; J1650; J1815; J3010; J3370; J3370-JW; J3490; J7030; J7050; J7120

== ENCOUNTER 2023-07-30 17:00 | Inpatient (IN) | payer MEDICARE, OTHER ==
[2023-07-30 19:21] LABS: #Basophils 0.04 10x3/uL (0.0-0.2); %Basophils 0.3 % (0.0-1.0); %Eosinophils 0.5 % (0.0-10.0); %Lymphocytes 18.3 % (21.0-51.0); %Monocytes 10.3 % (0.0-10.0); Hematocrit 21.9 % (36.0-47.0); Hemoglobin 7.1 g/dL (12.0-16.0); Mean Corpuscular HGB CONC 32.4 g/dL (32.0-36.0); Mean Corpuscular Hemoglobin 32.7 pg (27.0-31.0); Mean Corpuscular Volume 100.9 fL (78.0-98.0); Mean Platelet Volume 10.5 fL (7.4-10.4); Platelet Count 142 10x3/uL (130-400); RBC Distribution Width 15.7 % (11.5-14.5); Red Blood Cell (RBC) Count 2.17 mill/uL (4.20-5.40)
[2023-07-30 19:36] LABS: ALT (SGPT) 27 U/L (8-55); AST (SGOT) 37 U/L (5-34); Albumin 2.2 g/dL (3.5-5.0); Alkaline Phosphatase 184 U/L (40-110); Anion Gap 17 mmol/L (10-20); BUN (Urea Nitrogen) 31 mg/dL (9.8-20.1); Bilirubin, Total 1.3 mg/dL (0.2-1.2); Calc. Creatinine Clearance 0 mL/min (70-130); Calcium 8.2 mg/dL (7.8-10.44); Carbon Dioxide 14 mmol/L (22-29); Chloride 107 mmol/L (98-107); Estimated GFR 77; Globulin 3.4 g/dL (2.4-3.5); Glucose 293 mg/dL (70-105); Potassium 4.3 mmol/L (3.5-5.1); Protein, Total 5.6 g/dL (6.0-8.3); Sodium 134 mmol/L (136-145)
[2023-07-30 19:41] LABS: Troponin I Less than 0.010 ng/mL (< 0.028)
[2023-07-30] MEDS ORDERED: fentaNYL 50 mcg/mL 1 mL Vial ONE ×2 (19:55→22:56)
[2023-07-30 20:04] LABS: Bacteria/HPF None Seen HPF (None Seen); Bilirubin Negative (Negative); Blood, Urine Negative (Negative); CAUTI Indications for Culture Pelvic or flank pain; Clarity Clear (Clear); Glucose, Urine (Dipstick) Greater than 1000 mg/dL (Negative); Ketone, Urine 40 mg/dL (Negative); Leukocyte 75 Leu/uL (Negative); Nitrite Negative (Negative); Protein, Urine (Dipstick) Negative (Neg-Trace); RBC/HPF 0-3 HPF (0-3); Specific Gravity, Urine 1.044 (1.002-1.036); Squamous Epithelial 0-3 HPF (0-3); Urobilinogen Normal mg/dL (Less than 2)
[2023-07-30 20:05] LABS: Urine Culture Reflex No No
[2023-07-30] MEDS ORDERED: Dextrose 5% in Water 1,000 ML IV PRN (23:09)
[2023-07-30] MEDS ORDERED: Dextrose 50% Abboject 50 ML SYRINGE SLOW IVP PRN (23:09)
[2023-07-30] MEDS ORDERED: Glucagon 1 MG/ML KIT IM PRN (23:09)
[2023-07-30] MEDS: cefTRIAXone\\ROCEPHIN 2 GM in Sodium Chloride 0.9% 100 ML IVPB SCH (23:53)
[2023-07-31 00:22] LABS: Hematocrit 20.2 % (36.0-47.0); Hemoglobin 6.7 g/dL (12.0-16.0)
[2023-07-31] MEDS: Octreotide Acetate 50 MCG/ML AMP SLOW IVP SCH (00:29)
[2023-07-31 00:42] LABS: Hemoglobin A1c 9.4 % (4.0-6.0)
[2023-07-31] MEDS: HYDROcodone/Acetaminophen 5/325 mg Tablet PO SCH (01:06)
[2023-07-31] MEDS: Pantoprazole 80 MG in Sodium Chloride 0.9% 100 ML IVPB SCH (01:58)
[2023-07-31] MEDS: Octreotide Acetate 1,250 MCG in Sodium Chloride 0.9% 250 ML 250 ML IVPB SCH (01:58)
[2023-07-31 03:27] LABS: Amphetamine Not Detected (NotDetected); Barbiturates Screen Not Detected (NotDetected); Benzodiazepine Screen Not Detected (NotDetected); Cocaine Metabolite Screen Not Detected (NotDetected); Methadone Not Detected (NotDetected); Methamphetamine Not Detected (NotDetected); Opiate Screen Not Detected (NotDetected); Oxycodone Screen Not Detected (NotDetected); Phencyclidine (PCP) Not Detected (NotDetected); THC/Cannabinoid Screen Detected (NotDetected); Tricyclic Screen Detected (NotDetected)
[2023-07-31] MEDS: metroNIDAZOLE 500 MG in Premix 1 BAG IVPB SCH (05:21)
[2023-07-31] MEDS: Sodium Bicarbonate 75 MEQ in Sodium Chloride 0.45% 1,000 ML IV SCH (06:09)
[2023-07-31 06:41] LABS: #Basophils 0.04 10x3/uL (0.0-0.2); %Basophils 0.4 % (0.0-1.0); %Eosinophils 1.9 % (0.0-10.0); %Lymphocytes 16.3 % (21.0-51.0); %Neutrophils 68.9 % (42.0-75.0); Hematocrit 23.2 % (36.0-47.0); Hemoglobin 7.6 g/dL (12.0-16.0); Mean Corpuscular HGB CONC 32.8 g/dL (32.0-36.0); Mean Corpuscular Hemoglobin 32.3 pg (27.0-31.0); Mean Corpuscular Volume 98.7 fL (78.0-98.0); Mean Platelet Volume 10.8 fL (7.4-10.4); Platelet Count 133 10x3/uL (130-400); RBC Distribution Width 17.7 % (11.5-14.5); Red Blood Cell (RBC) Count 2.35 mill/uL (4.20-5.40)
[2023-07-31 06:55] LABS: Anion Gap 18 mmol/L (10-20); BUN (Urea Nitrogen) 32 mg/dL (9.8-20.1); Calc. Creatinine Clearance 99 mL/min (70-130); Calcium 8.2 mg/dL (7.8-10.44); Carbon Dioxide 14 mmol/L (22-29); Chloride 106 mmol/L (98-107); Estimated GFR 79; Glucose 240 mg/dL (70-105); Potassium 3.9 mmol/L (3.5-5.1); Sodium 134 mmol/L (136-145)
[2023-07-31 06:58] LABS: INR-International Normal Ratio 1.3; PTT 30.7 sec (22.9-36.1); Prothrombin Time 16.6 sec (12.0-14.7)
[2023-07-31] MEDS ORDERED: Insulin Glargine 30 UNITS/0.3 ML VIAL SC SCH (09:00)
[2023-07-31] MEDS: HumaLOG 300 UNITS/3 ML VIAL SC PRN (09:01)
[2023-07-31] MEDS: Aripiprazole 10 MG TAB PO SCH (09:02)
[2023-07-31] MEDS: Spironolactone 25 MG TAB PO SCH (09:02)
[2023-07-31] MEDS: Empagliflozin 10 MG TAB PO SCH (09:02)
[2023-07-31] MEDS: Insulin Glargine 30 UNITS/0.3 ML VIAL SC SCH (09:02)
[2023-07-31 12:49] LABS: Hematocrit 24.2 % (36.0-47.0); Platelet Count 142 10x3/uL (130-400)
[2023-07-31 13:05] LABS: Anion Gap 21 mmol/L (10-20); BUN (Urea Nitrogen) 32 mg/dL (9.8-20.1); Calc. Creatinine Clearance 99 mL/min (70-130); Calcium 8.1 mg/dL (7.8-10.44); Carbon Dioxide 14 mmol/L (22-29); Chloride 108 mmol/L (98-107); Estimated GFR 79; Glucose 225 mg/dL (70-105); Potassium 3.7 mmol/L (3.5-5.1); Sodium 139 mmol/L (136-145)
[2023-07-31] MEDS ORDERED: Lidocaine 1% PF 5 ML VIAL ONE (13:11)
[2023-07-31] MEDS ORDERED: PROPOFOL 20 ML ONE ×2 (13:17→13:27)
[2023-07-31] MEDS ORDERED: EPINEPHrine 1 MG/10 ML Abboject SYRINGE ONE (13:29)
[2023-07-31] MEDS ORDERED: Ondansetron HCl/PF 4 MG/2 ML Vial IVP PRN (14:01)
[2023-07-31] MEDS ORDERED: Promethazine HCl 25 MG/ML VIAL IM PRN (14:01)
[2023-07-31] MEDS ORDERED: fentaNYL 50 mcg/mL 1 mL Vial ONE ×2 (14:03→14:13)
[2023-07-31] MEDS ORDERED: Ondansetron ODT 4 MG TAB PO PRN (16:25)
[2023-07-31] MEDS ORDERED: Sodium Chloride 0.9% 1,000 ML IV PRN ×4 (16:33)
[2023-07-31] MEDS ORDERED: NS 0.9% w/ 20 MEQ KCL 1,000 ML IV PRN ×2 (16:33)
[2023-07-31] MEDS ORDERED: Dextrose 5 %-0.45 % NaCl 1,000 ML IV PRN (16:33)
[2023-07-31] MEDS ORDERED: Dextrose 50% Abboject 50 ML SYRINGE SLOW IVP PRN (16:33)
[2023-07-31 16:34] LABS: Anion Gap 23 mmol/L (10-20); BUN (Urea Nitrogen) 33 mg/dL (9.8-20.1); Calc. Creatinine Clearance 103 mL/min (70-130); Carbon Dioxide 11 mmol/L (22-29); Chloride 108 mmol/L (98-107); Estimated GFR 82; Glucose 285 mg/dL (70-105); Potassium 3.7 mmol/L (3.5-5.1); Sodium 138 mmol/L (136-145)
[2023-07-31] MEDS ORDERED: Electrolyte Replacement Protocol FS PRN (17:00)
[2023-07-31] MEDS: D5 1/2 NS w/20 mEq KCL 1,000 ML IV PRN (17:49)
[2023-07-31] MEDS: Insulin Reg, Human 100 UNITS in Sodium Chloride 0.9% 100 ML IVPB SCH (17:49)
[2023-07-31] MEDS: Electrolyte Replacement Protocol 1 EACH IVPB ONE (17:56)
[2023-07-31] MEDS: Amitriptyline HCl 100 MG TAB PO SCH (20:58)
[2023-07-31] MEDS: tiZANidine HCl 4 MG TAB PO PRN (20:59)
[2023-08-01 06:27] LABS: Anion Gap 11 mmol/L (10-20); BUN (Urea Nitrogen) 23 mg/dL (9.8-20.1); Calc. Creatinine Clearance 115 mL/min (70-130); Calcium 7.4 mg/dL (7.8-10.44); Carbon Dioxide 18 mmol/L (22-29); Chloride 110 mmol/L (98-107); Estimated GFR 95; Glucose 145 mg/dL (70-105); Potassium 3.3 mmol/L (3.5-5.1); Sodium 136 mmol/L (136-145)
[2023-08-01 06:29] LABS: #Basophils Less than 0.03 10x3/uL (0.0-0.2); %Basophils 0.2 % (0.0-1.0); %Lymphocytes 16.9 % (21.0-51.0); %Monocytes 10.2 % (0.0-10.0); %Neutrophils 70.9 % (42.0-75.0); Hematocrit 18.9 % (36.0-47.0); Hemoglobin 6.3 g/dL (12.0-16.0); Mean Corpuscular HGB CONC 33.3 g/dL (32.0-36.0); Mean Corpuscular Hemoglobin 32.8 pg (27.0-31.0); Mean Corpuscular Volume 98.4 fL (78.0-98.0); Mean Platelet Volume 10.1 fL (7.4-10.4); Platelet Count 111 10x3/uL (130-400); Red Blood Cell (RBC) Count 1.92 mill/uL (4.20-5.40)
[2023-08-01] MEDS: Potassium Chloride 20 MEQ TAB PO SCH ×2 (09:06→18:57)
[2023-08-01] MEDS ORDERED: Albuterol 200 PUFF (6.7GM INHALER) INH PRN ×2 (16:47→16:48)
[2023-08-01] MEDS ORDERED: Lorazepam 1 MG TAB PO PRN (16:49)
[2023-08-01] MEDS ORDERED: Glycerin Pediatric Sup. (4ml) PR PRN (16:50)
[2023-08-01] MEDS ORDERED: Polyethylene Glycol 3350 17 GM Packet PO PRN (16:50)
[2023-08-01] MEDS ORDERED: Electrolyte Replacement Protocol 1 EACH FS SCH (17:00)
[2023-08-01] MEDS: Polyethylene Glycol 3350 17 GM Packet PO SCH (17:13)
[2023-08-01] MEDS: Multivit, Therapeutic 1 TAB PO SCH (17:13)
[2023-08-01] MEDS: Folic Acid 1 MG TAB PO SCH (17:13)
[2023-08-01] MEDS: Thiamine HCl 200 MG/2 ML VIAL SLOW IVP SCH (17:14)
[2023-08-01 19:10] LABS: Hematocrit 23.9 % (36.0-47.0); Mean Corpuscular HGB CONC 33.5 g/dL (32.0-36.0); Mean Corpuscular Hemoglobin 32.3 pg (27.0-31.0); Mean Corpuscular Volume 96.4 fL (78.0-98.0); Mean Platelet Volume 10.4 fL (7.4-10.4); Platelet Count 125 10x3/uL (130-400); Red Blood Cell (RBC) Count 2.48 mill/uL (4.20-5.40)
[2023-08-01 19:13] LABS: Potassium 4.2 mmol/L (3.5-5.1)
[2023-08-01] MEDS: Lorazepam 2 MG/ML VIAL IM PRN (20:14)
[2023-08-01] MEDS: Pantoprazole 40 MG VIAL IVP SCH (20:17)
[2023-08-02 04:09] LABS: #Basophils Less than 0.03 10x3/uL (0.0-0.2); %Basophils 0.2 % (0.0-1.0); %Eosinophils 1.7 % (0.0-10.0); %Monocytes 15.8 % (0.0-10.0); %Neutrophils 64.1 % (42.0-75.0); Hematocrit 25.8 % (36.0-47.0); Hemoglobin 8.2 g/dL (12.0-16.0); Mean Corpuscular HGB CONC 31.8 g/dL (32.0-36.0); Mean Corpuscular Hemoglobin 32.5 pg (27.0-31.0); Mean Corpuscular Volume 102.4 fL (78.0-98.0); Mean Platelet Volume 10.2 fL (7.4-10.4); Platelet Count 100 10x3/uL (130-400); RBC Distribution Width 20.9 % (11.5-14.5); Red Blood Cell (RBC) Count 2.52 mill/uL (4.20-5.40)
[2023-08-02 05:39] LABS: Anion Gap 13 mmol/L (10-20); BUN (Urea Nitrogen) 15 mg/dL (9.8-20.1); Calc. Creatinine Clearance 124 mL/min (70-130); Calcium 8.2 mg/dL (7.8-10.44); Carbon Dioxide 13 mmol/L (22-29); Chloride 115 mmol/L (98-107); Estimated GFR 100; Glucose 224 mg/dL (70-105); Potassium 5.2 mmol/L (3.5-5.1); Sodium 136 mmol/L (136-145)
[2023-08-02] MEDS: Empagliflozin 10 MG TAB PO SCH (09:29)
[2023-08-02] MEDS: Multivit, Therapeutic 1 TAB PO SCH (09:29)
[2023-08-02] MEDS: Polyethylene Glycol 3350 17 GM Packet PO SCH (09:29)
[2023-08-02] MEDS: Folic Acid 1 MG TAB PO SCH (09:29)
[2023-08-02] MEDS: Sodium Bicarbonate Tab 325 MG TAB PO SCH ×2 (10:43→15:32)
[2023-08-02 14:06] LABS: Potassium 4.9 mmol/L (3.5-5.1)
[2023-08-02 15:37] LABS: %CD4 (Helper/Inducer) 34.8 % (30.8-58.5); Absolute CD4 557 /uL (359-1519); Lymphocytes/Gated Cell Count 1.6 x10E3/uL (0.7-3.1); Total Lymphocyte 17 % (Not Estab.); WBC Total Count 9.5 x10E3/uL (3.4-10.8)
[2023-08-02] MEDS ORDERED: Lorazepam 1 MG TAB PO PRN (16:49)
[2023-08-02 19:13] LABS: LOG10 HIV-1 RNA 4.233 (.)
[2023-08-02] MEDS: HumaLOG 300 UNITS/3 ML VIAL SC PRN (20:31)
[2023-08-03 05:08] LABS: #Basophils Less than 0.03 10x3/uL (0.0-0.2); %Basophils 0.4 % (0.0-1.0); %Eosinophils 1.8 % (0.0-10.0); %Lymphocytes 18.1 % (21.0-51.0); %Monocytes 14.8 % (0.0-10.0); %Neutrophils 63.6 % (42.0-75.0); Hematocrit 23.4 % (36.0-47.0); Hemoglobin 7.6 g/dL (12.0-16.0); Mean Corpuscular HGB CONC 32.5 g/dL (32.0-36.0); Mean Corpuscular Hemoglobin 31.9 pg (27.0-31.0); Mean Corpuscular Volume 98.3 fL (78.0-98.0); Mean Platelet Volume 10.6 fL (7.4-10.4); Platelet Count 98 10x3/uL (130-400); Red Blood Cell (RBC) Count 2.38 mill/uL (4.20-5.40)
[2023-08-03 05:28] LABS: Anion Gap 13 mmol/L (10-20); BUN (Urea Nitrogen) 11 mg/dL (9.8-20.1); Calc. Creatinine Clearance 126 mL/min (70-130); Calcium 8.1 mg/dL (7.8-10.44); Carbon Dioxide 19 mmol/L (22-29); Chloride 109 mmol/L (98-107); Estimated GFR 96; Glucose 255 mg/dL (70-105); Potassium 3.7 mmol/L (3.5-5.1); Sodium 137 mmol/L (136-145)
[2023-08-03] MEDS: Lorazepam 2 MG/ML VIAL SLOW IVP SCH (10:34)
[2023-08-03] MEDS: Furosemide 40 MG (4 mL) VIAL SLOW IVP SCH ×3 (14:40→18:29)
[2023-08-03] MEDS ORDERED: Lorazepam 1 MG TAB PO PRN (16:49)
[2023-08-03] MEDS: Benztropine 1 MG TAB PO SCH (21:26)
[2023-08-03] MEDS: Pantoprazole DR 40 MG TAB PO SCH (21:27)
[2023-08-04] MEDS: Albumin 25% 25 GM (100 mL) BOT IVPB SCH (03:15)
[2023-08-04] MEDS: Sodium Chloride 0.9% 250 ML IV SCH (03:16)
[2023-08-04 04:14] LABS: Anion Gap 13 mmol/L (10-20); BUN (Urea Nitrogen) 11 mg/dL (9.8-20.1); Calc. Creatinine Clearance 121 mL/min (70-130); Calcium 8.3 mg/dL (7.8-10.44); Carbon Dioxide 21 mmol/L (22-29); Chloride 105 mmol/L (98-107); Estimated GFR 92; Glucose 194 mg/dL (70-105); Magnesium 1.9 mg/dL (1.6-2.6); Sodium 136 mmol/L (136-145)
[2023-08-04 05:08] LABS: #Basophils Less than 0.03 10x3/uL (0.0-0.2); %Basophils 0.3 % (0.0-1.0); %Eosinophils 1.9 % (0.0-10.0); %Monocytes 14.7 % (0.0-10.0); %Neutrophils 60.5 % (42.0-75.0); Hematocrit 20.9 % (36.0-47.0); Hemoglobin 6.9 g/dL (12.0-16.0); Mean Corpuscular Hemoglobin 32.4 pg (27.0-31.0); Mean Corpuscular Volume 98.1 fL (78.0-98.0); Mean Platelet Volume 11.2 fL (7.4-10.4); Platelet Count 78 10x3/uL (130-400); RBC Distribution Width 20.4 % (11.5-14.5); Red Blood Cell (RBC) Count 2.13 mill/uL (4.20-5.40)
[2023-08-04] MEDS: Furosemide 40 MG (4 mL) VIAL SLOW IVP SCH (05:17)
[2023-08-04] MEDS ORDERED: Lisinopril 20 MG TAB PO SCH (09:00)
[2023-08-04] MEDS: Magnesium 2 GM/50 ML(in water) 2 GM in Premix 1 BAG IVPB SCH (09:08)
[2023-08-04] MEDS: Potassium Chloride 20 MEQ TAB PO SCH (09:08)
[2023-08-04] MEDS ORDERED: Electrolyte Replacement Protocol 1 EACH FS SCH (10:00)
[2023-08-04] MEDS: Thiamine 100 MG TAB PO SCH (17:58)
[2023-08-05 05:02] LABS: Hematocrit 22.5 % (36.0-47.0); Hemoglobin 7.5 g/dL (12.0-16.0); Mean Corpuscular HGB CONC 33.3 g/dL (32.0-36.0); Mean Corpuscular Hemoglobin 30.1 pg (27.0-31.0); Mean Corpuscular Volume 90.4 fL (78.0-98.0); Mean Platelet Volume 11.8 fL (7.4-10.4); Platelet Count 67 10x3/uL (130-400); RBC Distribution Width 20.8 % (11.5-14.5); Red Blood Cell (RBC) Count 2.49 mill/uL (4.20-5.40)
[2023-08-05 05:08] LABS: Anion Gap 12 mmol/L (10-20); Calc. Creatinine Clearance 128 mL/min (70-130); Calcium 8.1 mg/dL (7.8-10.44); Carbon Dioxide 23 mmol/L (22-29); Chloride 105 mmol/L (98-107); Estimated GFR 100; Glucose 175 mg/dL (70-105); Magnesium 2.1 mg/dL (1.6-2.6); Potassium 3.2 mmol/L (3.5-5.1); Sodium 137 mmol/L (136-145)
[2023-08-05 05:26] LABS: BUN (Urea Nitrogen) 11 mg/dL (9.8-20.1)
[2023-08-05 05:52] LABS: Anisocytosis MODERATE=16-30 cells HPF (0-5); Burr Cells SLIGHT = 2-5 cells HPF (0-1); Eosinophils 1 % (0-10); Lymphocytes 20 % (21-51); Macrocytosis MODERATE=16-30 cells HPF (0-5); Monocytes 10 % (0-10); Neutrophil 68 % (42-75); Ovalocytes SLIGHT = 2-5 cells HPF (0-1); Platelet Adequacy Comment Platelets Decreased; Polychromasia MODERATE = 3-4 cells HPF (0-2); Smudge Cells 8.9 %
[2023-08-05] MEDS: Furosemide 40 MG TAB PO SCH (08:36)
[2023-08-05 09:52] VITALS: BMI 32.8
[2023-08-05] MEDS ORDERED: HYDROcodone/Acetaminophen 10/325 mg Tablet PO PRN (11:12)
[2023-08-05] MEDS: HYDROcodone/Acetaminophen 5/325 mg Tablet PO PRN (11:35)
[2023-08-05] MEDS: Bictegrav/Emtricit/Tenofov Ala 1 TAB Tab PO SCH (14:14)
[2023-08-05] MEDS: metFORMIN 500 MG TAB PO SCH (22:14)
[2023-08-06 05:27] LABS: Anion Gap 12 mmol/L (10-20); BUN (Urea Nitrogen) 12 mg/dL (9.8-20.1); Calc. Creatinine Clearance 121 mL/min (70-130); Calcium 8.5 mg/dL (7.8-10.44); Carbon Dioxide 25 mmol/L (22-29); Chloride 104 mmol/L (98-107); Estimated GFR 98; Glucose 149 mg/dL (70-105); Potassium 3.6 mmol/L (3.5-5.1); Sodium 137 mmol/L (136-145)
[2023-08-06 06:39] LABS: #Basophils Less than 0.03 10x3/uL (0.0-0.2); %Basophils 0.4 % (0.0-1.0); %Eosinophils 2.5 % (0.0-10.0); %Lymphocytes 26.3 % (21.0-51.0); %Monocytes 16.6 % (0.0-10.0); Hematocrit 23.4 % (36.0-47.0); Hemoglobin 7.5 g/dL (12.0-16.0); Mean Corpuscular HGB CONC 32.1 g/dL (32.0-36.0); Mean Corpuscular Hemoglobin 30.2 pg (27.0-31.0); Mean Corpuscular Volume 94.4 fL (78.0-98.0); Mean Platelet Volume 12.2 fL (7.4-10.4); Platelet Count 82 10x3/uL (130-400); RBC Distribution Width 20.5 % (11.5-14.5); Red Blood Cell (RBC) Count 2.48 mill/uL (4.20-5.40)
[2023-08-06] MEDS: Metoprolol Tartrate 25 MG TAB PO SCH (08:51)
[2023-08-06] MEDS: Potassium Chloride 20 MEQ TAB PO SCH (08:51)
[2023-08-06] MEDS: Lorazepam 0.5 MG TAB PO PRN (11:47)
[2023-08-06] MEDS: Pantoprazole 40 MG VIAL IVP SCH (22:47)
[2023-08-07 00:04] LABS: Hematocrit 19.9 % (36.0-47.0); Hemoglobin 6.3 g/dL (12.0-16.0)
[2023-08-07] MEDS: Lorazepam 2 MG/ML VIAL SLOW IVP SCH (00:17)
[2023-08-07 06:31] LABS: #Basophils Less than 0.03 10x3/uL (0.0-0.2); %Basophils 0.3 % (0.0-1.0); %Eosinophils 2.6 % (0.0-10.0); %Monocytes 15.3 % (0.0-10.0); %Neutrophils 57.5 % (42.0-75.0); Hematocrit 22.5 % (36.0-47.0); Hemoglobin 7.2 g/dL (12.0-16.0); Mean Corpuscular Hemoglobin 30.1 pg (27.0-31.0); Mean Corpuscular Volume 94.1 fL (78.0-98.0); Mean Platelet Volume 12.1 fL (7.4-10.4); Platelet Count 87 10x3/uL (130-400); RBC Distribution Width 19.5 % (11.5-14.5); Red Blood Cell (RBC) Count 2.39 mill/uL (4.20-5.40)
[2023-08-07 06:42] LABS: Anion Gap 9 mmol/L (10-20); BUN (Urea Nitrogen) 16 mg/dL (9.8-20.1); Calc. Creatinine Clearance 124 mL/min (70-130); Calcium 8.4 mg/dL (7.8-10.44); Carbon Dioxide 29 mmol/L (22-29); Chloride 106 mmol/L (98-107); Estimated GFR 100; Glucose 136 mg/dL (70-105); Potassium 3.6 mmol/L (3.5-5.1); Sodium 140 mmol/L (136-145)
[2023-08-07 06:49] LABS: Actual Bicarbonate (HCO3a) 28.5 mEq/L (22-28); Base Excess (BEa) 5.5 mEq/L (-2.0 to +3.0); CO2 Tension 35.2 mmHg (35.0-45.0); Calcium, Ionized (arterial) 1.14 mmol/L (1.12-1.30); Carboxyhemoglobin (COHb) 1.4 gm% (0.0-3.0); Hematocrit-ABG 26 % (36.0-47.0); Hemoglobin (Hb) 8.7 g/dL (12.0-16.0); O2 Tension (PaO2), arterial 70.5 mmHg (80.0-100.0); Potassium - ABG Lab 3.43 mmol/L (3.70-5.30); pH, Arterial 7.526 (7.35-7.45)
[2023-08-07 06:51] LABS: Puncture Site RRA
[2023-08-07 07:37] LABS: Lactic Acid 1.4 mmol/L (0.5-2.2)
[2023-08-07] MEDS: Pantoprazole 40 MG VIAL IVP SCH ×2 (08:24→20:34)
[2023-08-07] MEDS ORDERED: Sodium Chloride 0.9% 1,000 ML IV SCH (08:30)
[2023-08-07] MEDS ORDERED: Pantoprazole 40 MG VIAL IVP SCH (09:00)
[2023-08-07] MEDS ORDERED: Lactulose 20 GM (30 mL) UDCUP PO SCH (09:00)
[2023-08-07] MEDS: Sodium Chloride 0.9% 1,000 ML IV SCH (09:50)
[2023-08-07 10:05] VITALS: BP 133/86
[2023-08-07] MEDS: cefTRIAXone\\ROCEPHIN 1 GM in Sodium Chloride 0.9% 100 ML IVPB SCH (10:10)
[2023-08-07] MEDS ORDERED: Octreotide Acetate 1,250 MCG in Sodium Chloride 0.9% 250 ML 250 ML IVPB SCH (10:20)
[2023-08-07] MEDS ORDERED: Octreotide Acetate 100 MCG/ML VIAL SLOW IVP SCH (10:20)
[2023-08-07 10:26] VITALS: BMI 33.0
[2023-08-07] MEDS ORDERED: Ventilator Sedation Protocol 1 EACH FS SCH (10:43)
[2023-08-07] MEDS ORDERED: hydrALAZINE 20 MG/ML VIAL SLOW IVP PRN (10:43)
[2023-08-07] MEDS: Propofol 1,000 MG/100 ML VIAL IV ONE (11:05)
[2023-08-07] MEDS: Propofol 1,000 MG/100 ML VIAL IV PRN (11:07)
[2023-08-07] MEDS ORDERED: Fentanyl BOLUS 250 ML IVPB PRN (11:15)
[2023-08-07] MEDS ORDERED: Propofol BOLUS 1,000 MG/100 ML VIAL IV PRN (11:15)
[2023-08-07] MEDS ORDERED: Morphine 4 MG/ML VIAL SLOW IVP PRN (11:15)
[2023-08-07] MEDS ORDERED: DISCONTINUE PREVIOUS NARCOTIC PAIN MEDICATIONS AND BENZODIAZEPINES FS SCH (11:15)
[2023-08-07] MEDS: Multivitamins, Adult 10 ML, Folic Acid 1 MG, Thiamine HCl 100 MG in Dextrose 5 %-0.45 %... IV SCH (11:19)
[2023-08-07] MEDS: Octreotide Acetate 1,250 MCG in Sodium Chloride 0.9% 250 ML 250 ML IVPB SCH (11:19)
[2023-08-07] MEDS: Octreotide Acetate 100 MCG/ML VIAL SLOW IVP SCH (11:23)
[2023-08-07 11:41] LABS: Hematocrit 32.1 % (36.0-47.0); Hemoglobin 10.3 g/dL (12.0-16.0)
[2023-08-07] MEDS: Magnesium 2 GM/50 ML(in water) 2 GM in Premix 1 BAG IVPB SCH (13:06)
[2023-08-07] MEDS: Lorazepam 2 MG/ML VIAL SLOW IVP PRN (16:35)
[2023-08-07 16:59] LABS: Hematocrit 23.4 % (36.0-47.0); Hemoglobin 7.6 g/dL (12.0-16.0)
[2023-08-07] MEDS: Fentanyl CADD 100 ML IV SCH (19:29)
[2023-08-07 20:31] LABS: #Basophils 0.03 10x3/uL (0.0-0.2); %Basophils 0.3 % (0.0-1.0); %Lymphocytes 21.8 % (21.0-51.0); %Monocytes 13.5 % (0.0-10.0); Hemoglobin 9.3 g/dL (12.0-16.0); Mean Corpuscular HGB CONC 33.2 g/dL (32.0-36.0); Mean Corpuscular Volume 90.3 fL (78.0-98.0); Platelet Count 99 10x3/uL (130-400)
[2023-08-08 00:10] LABS: #Basophils 0.04 10x3/uL (0.0-0.2); %Basophils 0.5 % (0.0-1.0); %Eosinophils 2.9 % (0.0-10.0); %Lymphocytes 22.6 % (21.0-51.0); %Neutrophils 60.8 % (42.0-75.0); Hematocrit 28.4 % (36.0-47.0); Hemoglobin 9.1 g/dL (12.0-16.0); Mean Corpuscular Hemoglobin 28.8 pg (27.0-31.0); Mean Corpuscular Volume 89.9 fL (78.0-98.0); Mean Platelet Volume 12.3 fL (7.4-10.4); Platelet Count 80 10x3/uL (130-400); RBC Distribution Width 21.4 % (11.5-14.5); Red Blood Cell (RBC) Count 3.16 mill/uL (4.20-5.40)
[2023-08-08 04:15] VITALS: TEMP 99.6
[2023-08-08] MEDS ORDERED: cefTRIAXone\\ROCEPHIN 1 GM in Sodium Chloride 0.9% 100 ML IVPB SCH (09:00)
== END 2023-08-08 04:05 | disposition short-term general hospital (02) | DRG 377 ==
LOC: ERS 17:00 → IMCU/EMU 22:18 → 2NO 08-02 12:09 → CCU 08-07 07:29
PROVIDERS: ADMIT Internal Medicine; ATTEND Internal Medicine Critical Care Medicine
PROC: 0W3P8ZZ Control Bleeding in Gastrointestinal Tract, Via Natural or Artificial Opening Endoscopic (ICD-10-PCS; principal; 2023-07-31)
PROC: 30233N1 Transfusion of Nonautologous Red Blood Cells into Peripheral Vein, Percutaneous Approach (ICD-10-PCS; 2023-07-31)
PROC: 0DJ08ZZ Inspection of Upper Intestinal Tract, Via Natural or Artificial Opening Endoscopic (ICD-10-PCS; 2023-08-07)
PROC: 4A033R1 Measurement of Arterial Saturation, Peripheral, Percutaneous Approach (ICD-10-PCS; 2023-08-07)
DX: K26.4 Chronic or unspecified duodenal ulcer with hemorrhage (principal); E11.10 Type 2 diabetes mellitus with ketoacidosis without coma; G93.41 Metabolic encephalopathy; J96.00 Acute respiratory failure, unspecified whether with hypoxia or hypercapnia; N39.0 Urinary tract infection, site not specified; D62 Acute posthemorrhagic anemia; I45.2 Bifascicular block; K76.6 Portal hypertension; R18.8 Other ascites; D61.818 Other pancytopenia; F31.9 Bipolar disorder, unspecified; K74.60 Unspecified cirrhosis of liver; E87.6 Hypokalemia; I10 Essential (primary) hypertension; K52.9 Noninfective gastroenteritis and colitis, unspecified; T50.2X5A Adverse effect of carbonic-anhydrase inhibitors, benzothiadiazides and other diuretics, initial encounter; Z21 Asymptomatic human immunodeficiency virus [HIV] infection status; F10.20 Alcohol dependence, uncomplicated; F41.9 Anxiety disorder, unspecified; E87.8 Other disorders of electrolyte and fluid balance, not elsewhere classified; E87.70 Fluid overload, unspecified; K31.89 Other diseases of stomach and duodenum; D69.6 Thrombocytopenia, unspecified; Z79.4 Long term (current) use of insulin; Z79.899 Other long term (current) drug therapy; Z79.84 Long term (current) use of oral hypoglycemic drugs
CPT/HCPCS: 36415; 36416; 36430; 36600; 70450; 71045; 76705; 80048; 80306; 81001; 82010; 82140; 82805; 83036; 83605; 83735; 83880; 84145; 85025; 85610; 85730; 86361; 86850; 86900; 86901; 87536; 93005; 93306; 94002; 94003; 96374; 96376; C9113; J0171; J0696; J1815; J1940; J2060; J2354; J2704; J3010; J3411; J3475; J3480; J3490; J7030; J7042; J7050; P9016; P9047